=== PATIENT | female | born 1960 | race Caucasian/White ===

== ENCOUNTER → 2017-05-28 | Outpatient (CLI) | payer OTHER ==
--- NOTE | ~2017-05-28 | HC ---
[facility] [place] [address] CONSULTATION Name: TYRELL LOYOLA Room #: REG GRICEL Steward#: [id number] Admission: 05/28/17 Attend Phys: Fuad Hamilton Discharge: Date of : 58 Report #: [id number] THIS REPORT FOR: //name// CC: Fuad Thomas DO DATE OF SERVICE: 05/28/2017 OUTPATIENT CONSULTATION [facility] NOTE DATE OF SERVICE: 05/28/2017 HISTORY OF PRESENT ILLNESS: The patient is a 57-year-old white woman residing [facility] for some 11 years or thereabout. This patient was previously evaluated by me at [facility] with right lower extremity and left lower extremity chronic ulceration. The patient has required a partial amputation of the right hip and knee in the past. She has undergone right AKA at [facility] 2 years ago. Now, she is referred with history of chronic nonhealing ulceration of left lower extremity that is painful in nature. The patient tells me she has been thinking about this problem for quite some time and now she has elected and tells me she wants to have an amputation. Obviously, if this is her decision, I will need to discuss these problems with Dr. Alan Thomas and/or Dr. John to make a decision for such a drastic intervention, but the patient is not able to tolerate the ongoing pain. A culture of these leg ulcerations as well as DNA probes of the ulceration on the left leg has revealed multiple different organisms. The possibility of using broad-spectrum antibiotic coverage is entertained in hope of saving this leg. PAST MEDICAL HISTORY: 1. Schizoaffective disorder. 2. Diabetes mellitus. 3. Morbid obesity. 4. Hypertension. 5. COPD 6. Dyslipidemia. 7. Stasis ulceration, left lower extremity. 8. Migraines. 9. Anemia of chronic disease. 10. Status post laparoscopic cholecystectomy. SOCIAL HISTORY: Resides [facility]. No systemic antibiotics of lately. [facility] [address] [place] [address] CONSULTATION Name: TYRELL LOYOLA Room #: REG GRICEL Steward#: [id number] Admission: 05/28/17 Attend Phys: Fuad Hamilton Discharge: Date of : 58 Report #: [id number] DRUG ALLERGIES: CODEINE, PHENOBARBITAL, CEPHALOSPORIN. MEDICATIONS: The patient is on treatment with Lactobacillus acidophilus, Chantix, clonazepam, cranberry tablets, fenofibrate 150 mg at bedtime, ferrous sulfate 325 b.i.d., furosemide 20 mg daily, levothyroxine 125 mcg daily, lisinopril 10 mg daily, loratadine 10 mg daily, Lyrica 150 mg 2 capsules twice daily, Tylenol Extra Strength one tablet twice daily if needed, metformin 500 mg b.i.d., montelukast 10 mg daily, Prilosec 20 mg daily, oxybutynin 5 mg daily, propranolol 10 mg twice daily for tremors, quetiapine 300 mg daily, senna p.r.n., sertraline 100 mg 2 tablets every day, trazodone 100 mg at bedtime as well as local wound care. REVIEW OF SYSTEMS: The main complaint of this patient is chronic ongoing pain in the left leg ulcer, not well controlled of lately. PHYSICAL EXAMINATION: GENERAL: Morbidly obese white woman. VITAL SIGNS: Blood pressure 101/56, pulse 65, temperature 98.8, O2 saturation 99%. HEENMT: Within range. NECK: Short obese, difficult to examine. BREASTS: Deferred. LUNGS: Decreased breath sounds. HEART: S1, S2. No gallop or murmur. ABDOMEN: Obese, surgical scar of laparoscopic cholecystectomy. EXTREMITIES: Right AKA stump, heel left leg chronic ulceration with some erythema, question cellulitis versus contact dermatitis, chronic ulceration, left leg, no purulence, no odor from the wounds. LABORATORY DATA: On 04/25/2017, the patient had arterial ultrasound left foot and there is no significant abnormalities. The conclusion is mild to moderate atherosclerotic disease. DNA probes obtained of the left leg ulcer on 05/01/2017 revealed Acinetobacter baumannii, Pseudomonas aeruginosa. The organisms multiple resistant in nature. On 04/20/2017, chemistry revealed sodium 138, potassium 4.2, glucose 138, BUN 29, creatinine 0.9. WBC 5.7, hemoglobin 9.4, platelets 180,000. Urine culture 03/2017 revealed greater than 100,000 colonies of E. coli and multiple drug resistant organisms sensitive to meropenem. ASSESSMENT: 1. 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 2. Diabetes mellitus. 3. Morbid obesity. 4. Schizoaffective disorder. [facility] [address] [place] [address] CONSULTATION Name: TYRELL LOYOLA Room #: RADHA Steward#: [id number] Admission: 05/28/17 Attend Phys: Fuad Hamilton Discharge: Date of : 58 Report #: [id number] SUGGESTIONS: At present, I believe the patient's leg ulceration is not obviously infected looking. We could try broad spectrum antibiotics, but I doubt very much that after several years of patient suffering with this condition, her ulceration may heel. I will need to discuss the patient's situation with Dr. Alan Thomas regarding the patient's request to proceed with amputation. If that is the patient's final decision, we may consult Dr. John Frank, orthopedic surgeon, to proceed with amputation. Dr. Thomas, thank you for requesting my suggestions in the care of your patient. <ELECTRONICALLY SIGNED> By: Fuad Mclean MD 05/29/17 0906 [id number] Fuad Mclean MD /nt
== END ==
LOC: SEN 09:21
DX: E11.621 Type 2 diabetes mellitus with foot ulcer (principal); L97.529 Non-pressure chronic ulcer of other part of left foot with unspecified severity; E66.01 Morbid (severe) obesity due to excess calories; F25.9 Schizoaffective disorder, unspecified; I10 Essential (primary) hypertension; J44.9 Chronic obstructive pulmonary disease, unspecified

== ENCOUNTER 2017-07-16 15:33 | Inpatient (IN) | payer OTHER ==
[~2017-07-16] VITALS: Ht 170.2 cm; Wt 147.7 kg
[2017-07-16 15:33] VITALS: BP 119/49
[2017-07-16 16:07] LABS: HEMOGLOBIN 6.5 gm/dL (12.0-15.0); WBC 7.3 thou/uL (4.0-11.0)
[2017-07-16 16:08] LABS: HEMATOCRIT 21.3 % (37.0-47.0); MCH 26.3 pg (26.0-34.0); MCHC 30.5 g/dL (28.0-37.0); MCV 86.1 fL (80.0-100.0); RBC 2.48 mil/uL (4.20-5.00); RDW 25.4 % (10.5-14.5)
[2017-07-16] MEDS ORDERED: CALCIUM OYS SH1 EACH PO (16:23)
[2017-07-16] MEDS ORDERED: AMLODIPINE BESY10 MG PO (16:23)
[2017-07-16] MEDS ORDERED: FENOFIBRATE160 MG PO (16:24)
[2017-07-16] MEDS ORDERED: ADVAIR HFA 230M12 GM INH (16:24)
[2017-07-16] MEDS ORDERED: IRON325 PO (16:24)
[2017-07-16] MEDS ORDERED: LASIX 20 MG TAB20 MG PO (16:25)
[2017-07-16] MEDS ORDERED: ACIDOPHILUS1 EAC3 PO (16:25)
[2017-07-16] MEDS ORDERED: SYNTHROID112 MCG PO (16:26)
[2017-07-16] MEDS ORDERED: CLARITIN10 MG PO (16:26)
[2017-07-16] MEDS ORDERED: MELATONIN5 M1 PO (16:26)
[2017-07-16] MEDS ORDERED: SINGULAIR5 MG PO (16:26)
[2017-07-16] MEDS ORDERED: OXYBUTYNIN 5 MG5 M2 PO (16:27)
[2017-07-16] MEDS ORDERED: PRILOSEC 20 MG20 MG PO (16:27)
[2017-07-16] MEDS ORDERED: LYRICA 75 MG CA75 MG PO (16:32)
[2017-07-16] MEDS ORDERED: SENNA8.6 MG PO (16:33)
[2017-07-16] MEDS ORDERED: PROPRANOLOL 1010 MG PO (16:33)
[2017-07-16] MEDS ORDERED: SERTRALINE HCL50 MG PO (16:34)
[2017-07-16] MEDS ORDERED: TRAZODONE HCL100 MG PO (16:34)
[2017-07-16] MEDS ORDERED: QUETIAPINE FUM100 MG PO (16:34)
[2017-07-16] MEDS ORDERED: CLONAZEPAM 0.50.5 M1 PO (16:35)
[2017-07-16] MEDS ORDERED: TYLENOL EXTRA500 MG PO (16:43)
[2017-07-16] MEDS ORDERED: ENOXAPARIN40 MG/0.1 SUBQ (16:43)
[2017-07-16] MEDS ORDERED: HUMALOG100 UNIT/1 SUBQ (16:43)
[2017-07-16] MEDS ORDERED: PERCOCET 10-321 EAC1 PO (16:43)
[2017-07-16 17:52] LABS: CALCIUM 8.7 mg/dL (8.5-10.1); CREATININE 0.9 mg/dL (0.6-1.0); POTASSIUM 4.5 mmol/L (3.5-5.1)
[2017-07-16 17:58] LABS: APTT 41.6 Seconds (24.5-32.8); INR 1.2; PROTIME 11.8 Seconds (9.3-11.4)
[2017-07-16 18:19] VITALS: BP 105/53; BP 119/53; BP 123/62
[2017-07-16 21:00] VITALS: BP 119/53
[2017-07-16 21:45] VITALS: BP 133/79
[2017-07-17 01:24] VITALS: BP 105/50
[2017-07-17 06:13] VITALS: BP 130/69
[2017-07-17 06:20] LABS: HEMATOCRIT 23.5 % (37.0-47.0); HEMOGLOBIN 7.4 gm/dL (12.0-15.0); MCH 27.2 pg (26.0-34.0); MCHC 31.5 g/dL (28.0-37.0); MCV 86.4 fL (80.0-100.0); RBC 2.72 mil/uL (4.20-5.00); RDW 25.2 % (10.5-14.5); WBC 6.1 thou/uL (4.0-11.0)
[2017-07-17 06:34] LABS: CALCIUM 8.4 mg/dL (8.5-10.1); CREATININE 0.7 mg/dL (0.6-1.0); POTASSIUM 4.2 mmol/L (3.5-5.1)
[2017-07-17 10:02] LABS: % SATURATION 25 % (20-39); IRON 71 ug/dL (50-170); TIBC 281 ug/dL (250-450); UIBC 210 ug/dL
[2017-07-17 16:21] VITALS: BP 123/67
[2017-07-17 20:00] VITALS: BP 149/78
[2017-07-18] VITALS: BP 132/66
[2017-07-18 04:00] VITALS: BP 148/82
[2017-07-18 06:35] LABS: HEMATOCRIT 23.4 % (37.0-47.0); HEMOGLOBIN 7.5 gm/dL (12.0-15.0); MCH 27.8 pg (26.0-34.0); MCHC 31.8 g/dL (28.0-37.0); MCV 87.3 fL (80.0-100.0); RBC 2.68 mil/uL (4.20-5.00); WBC 5.1 thou/uL (4.0-11.0)
[2017-07-18 06:46] LABS: CALCIUM 8.4 mg/dL (8.5-10.1); CREATININE 0.8 mg/dL (0.6-1.0); POTASSIUM 4.4 mmol/L (3.5-5.1)
[2017-07-18 08:08] VITALS: BP 141/69
== END 2017-07-18 17:18 | DRG 378 ==
LOC: ER 15:33 → EROBS 17:37 → 4N 17:37
PROVIDERS: Emergency Medicine; Hospitalist; Internal Medicine; Nurse Practitioner
PROC: 30233N1 Transfusion of Nonautologous Red Blood Cells into Peripheral Vein, Percutaneous Approach (ICD-10-PCS; principal; 2017-07-16)
DX: K92.1 Melena (principal); D62 Acute posthemorrhagic anemia; I13.0 Hypertensive heart and chronic kidney disease with heart failure and stage 1 through stage 4 chronic kidney disease, or unspecified chronic kidney disease; Z68.43 Body mass index [BMI] 50.0-59.9, adult; E11.51 Type 2 diabetes mellitus with diabetic peripheral angiopathy without gangrene; K21.9 Gastro-esophageal reflux disease without esophagitis; F25.9 Schizoaffective disorder, unspecified; F41.9 Anxiety disorder, unspecified; G43.909 Migraine, unspecified, not intractable, without status migrainosus; I50.9 Heart failure, unspecified; M19.90 Unspecified osteoarthritis, unspecified site; N18.9 Chronic kidney disease, unspecified; G89.29 Other chronic pain; F03.90 Unspecified dementia, unspecified severity, without behavioral disturbance, psychotic disturbance, mood disturbance, and anxiety; I89.0 Lymphedema, not elsewhere classified; E11.22 Type 2 diabetes mellitus with diabetic chronic kidney disease; E03.9 Hypothyroidism, unspecified; Z66 Do not resuscitate; J44.9 Chronic obstructive pulmonary disease, unspecified; E78.5 Hyperlipidemia, unspecified; E66.01 Morbid (severe) obesity due to excess calories; D50.9 Iron deficiency anemia, unspecified; Z89.611 Acquired absence of right leg above knee; Z79.4 Long term (current) use of insulin; Z89.612 Acquired absence of left leg above knee; Z88.8 Allergy status to other drugs, medicaments and biological substances; Z87.11 Personal history of peptic ulcer disease; Z79.899 Other long term (current) drug therapy
CPT/HCPCS: 10790

== ENCOUNTER 2017-12-07 00:39 | Emergency (ER) | payer OTHER ==
[~2017-12-07] VITALS: Ht 170.2 cm; Wt 96.6 kg
[~2017-12-07 00:39] MED LIST: ACIDOPHILUS1 EAC3 PO; ADVAIR HFA 230M12 GM INH; AMLODIPINE BESY10 MG PO; CALCIUM OYS SH1 EACH PO; CLARITIN10 MG PO; CLONAZEPAM 0.50.5 M1 PO; ENOXAPARIN40 MG/0.1 SUBQ; FENOFIBRATE160 MG PO; HUMALOG100 UNIT/1 SUBQ; IRON325 PO; LASIX 20 MG TAB20 MG PO; LYRICA 75 MG CA75 MG PO; MELATONIN5 M1 PO; OXYBUTYNIN 5 MG5 M2 PO; PERCOCET 10-321 EAC1 PO; PRILOSEC 20 MG20 MG PO; PROPRANOLOL 1010 MG PO; QUETIAPINE FUM100 MG PO; SENNA8.6 MG PO; SERTRALINE HCL50 MG PO; SINGULAIR5 MG PO; SYNTHROID112 MCG PO; TRAZODONE HCL100 MG PO; TYLENOL EXTRA500 MG PO
[2017-12-07 01:11] LABS: BASOPHILS 0.7 % (0.0-2.0); EOSINOPHILS 3.4 % (0.0-3.0); HEMATOCRIT 34.4 % (37.0-47.0); HEMOGLOBIN 11.4 gm/dL (12.0-15.0); LYMPHOCYTES 24.2 % (24.0-44.0); MCH 28.9 pg (26.0-34.0); MCHC 33.1 g/dL (28.0-37.0); MCV 87.2 fL (80.0-100.0); MONOCYTES 10.2 % (1.0-8.0); PLATELET COUNT 145 thou/uL (150-400); POLYS 61.5 % (36.0-66.0); RBC 3.95 mil/uL (4.20-5.00); RDW 15.1 % (10.5-14.5); WBC 6.6 thou/uL (4.0-11.0)
[2017-12-07 01:21] LABS: CREATININE 1.3 mg/dL (0.6-1.0); POTASSIUM 4.8 mmol/L (3.5-5.1)
[2017-12-07] MEDS ORDERED: BUSPIRONE HCL10 MG PO (01:42)
[2017-12-07] MEDS ORDERED: ALL DAY ALLERGY10 M3 PO (01:43)
[2017-12-07] MEDS ORDERED: MIRALAX17 GM PO (01:46)
[2017-12-07] MEDS ORDERED: PROPRANOLOL 1010 MG PO (01:47)
[2017-12-07] MEDS ORDERED: GAS RELIEF80 MG PO (01:53)
[2017-12-07] MEDS ORDERED: FLOMAX0.4 MG PO (01:53)
[2017-12-07] MEDS ORDERED: ZANAFLEX2 MG PO (01:54)
[2017-12-07] MEDS ORDERED: ERGOCALCIF50000 UNIT PO (01:55)
[2017-12-07] MEDS ORDERED: VITAMIN C500 M2 PO (01:55)
[2017-12-07] MEDS ORDERED: FIBER 6 TABLE1000 MG PO (01:56)
[2017-12-07] MEDS ORDERED: ASPERCREME TOP (01:57)
[2017-12-07] MEDS ORDERED: NOVOLOG FL100 UNIT/M SUBQ (01:58)
[2017-12-07] MEDS ORDERED: GLUCAGON EMERGEN1 MG INJECTION (01:58)
[2017-12-07] MEDS ORDERED: TUMS PO (01:59)
[2017-12-07] MEDS ORDERED: CEPACOL SORE T1 EAC7 PO (02:00)
[2017-12-07] MEDS ORDERED: ONDANSETRON HCL4 M2 PO (02:02)
[2017-12-07] MEDS ORDERED: MILK OF MA2400 MG/10 PO (02:02)
[2017-12-07] MEDS ORDERED: ARTIFICIAL TEA1 EACH OPHTHALMIC (02:03)
[2017-12-07] MEDS ORDERED: DUONEB 2.5-0.5 M3 ML INH (02:04)
[2017-12-07] MEDS ORDERED: BISACODYL SUPP10 MG RECTAL (02:04)
[2017-12-07] MEDS ORDERED: BUTALB-APAP-CA1 EACH PO (02:05)
[2017-12-07] MEDS ORDERED: PERCOCET 10-321 EACH PO (02:08)
[2017-12-07] MEDS ORDERED: DOXYCYCLINE 10100 MG PO (02:09)
== END 2017-12-07 03:48 | disposition home or self-care (01) ==
LOC: ER 00:39
PROVIDERS: Emergency Medicine
DX: L03.012 Cellulitis of left finger (principal); E11.9 Type 2 diabetes mellitus without complications; I12.9 Hypertensive chronic kidney disease with stage 1 through stage 4 chronic kidney disease, or unspecified chronic kidney disease; N18.9 Chronic kidney disease, unspecified; I50.9 Heart failure, unspecified; G43.909 Migraine, unspecified, not intractable, without status migrainosus; F41.9 Anxiety disorder, unspecified; Z88.1 Allergy status to other antibiotic agents; Z88.5 Allergy status to narcotic agent; Z88.2 Allergy status to sulfonamides

== ENCOUNTER 2019-01-09 14:42 | Inpatient (IN) | payer OTHER ==
[~2019-01-09] VITALS: Ht 134.6 cm; Wt 134.3 kg
[~2019-01-09 14:42] MED LIST changes: +ALL DAY ALLERGY10 M3 PO; +ARTIFICIAL TEA1 EACH OPHTHALMIC; +ASPERCREME TOP; +BISACODYL SUPP10 MG RECTAL; +BUSPIRONE HCL10 MG PO; +BUTALB-APAP-CA1 EACH PO; +CEPACOL SORE T1 EAC7 PO; +DOXYCYCLINE 10100 MG PO; +DUONEB 2.5-0.5 M3 ML INH; +ERGOCALCIF50000 UNIT PO; +FIBER 6 TABLE1000 MG PO; +FLOMAX0.4 MG PO; +GAS RELIEF80 MG PO; +GLUCAGON EMERGEN1 MG INJECTION; +MILK OF MA2400 MG/10 PO; +MIRALAX17 GM PO; +NOVOLOG FL100 UNIT/M SUBQ; +ONDANSETRON HCL4 M2 PO; +PERCOCET 10-321 EACH PO; +TUMS PO; +VITAMIN C500 M2 PO; +ZANAFLEX2 MG PO
[2019-01-09 14:44] VITALS: BP 123/54
[2019-01-09 15:23] LABS: HEMATOCRIT 29.1 % (37.0-47.0); HEMOGLOBIN 9.4 gm/dL (12.0-15.0); MCH 28.2 pg (26.0-34.0); MCHC 32.3 g/dL (28.0-37.0); MCV 87.1 fL (80.0-100.0); PLATELET COUNT 202 thou/uL (150-400); RBC 3.34 mil/uL (4.20-5.00); RDW 15.9 % (10.5-14.5); WBC 8.1 thou/uL (4.0-11.0)
[2019-01-09 15:27] LABS: CALCIUM 9.3 mg/dL (8.5-10.1); POTASSIUM 4.5 mmol/L (3.5-5.1)
[2019-01-09 15:58] LABS: ABSOLUTE NEUTROPHILS 6.2 thou/uL (1.4-8.2); PLATELET ESTIMATE NORMAL
[2019-01-09 16:38] VITALS: BP 123/54
[2019-01-09 17:53] VITALS: BP 117/60
[2019-01-09 18:29] VITALS: BP 129/71
--- NOTE | 2019-01-09 18:33 | NUR ---
ADM PT CAME IN FROM ER. PT ORIENTED TO ROOM. ADM DONE. WILL CONTINUE TO MONITOR.
[2019-01-10 03:35] VITALS: BP 110/55
[2019-01-10 05:49] LABS: HEMATOCRIT 27.2 % (37.0-47.0); HEMOGLOBIN 8.8 gm/dL (12.0-15.0); MCH 28.1 pg (26.0-34.0); MCHC 32.4 g/dL (28.0-37.0); MCV 86.6 fL (80.0-100.0); PLATELET COUNT 209 thou/uL (150-400); RBC 3.14 mil/uL (4.20-5.00); RDW 15.8 % (10.5-14.5); WBC 7.8 thou/uL (4.0-11.0)
[2019-01-10 06:04] LABS: ALBUMIN 2.3 g/dL (3.4-5.0); CALCIUM 8.9 mg/dL (8.5-10.1); CREATININE 2.1 mg/dL (0.6-1.0); MAGNESIUM 1.7 mg/dL (1.8-2.4); POTASSIUM 4.8 mmol/L (3.5-5.1); TOTAL BILIRUBIN 0.3 mg/dL (<0.1-1.0); TOTAL PROTEIN 6.8 g/dL (6.4-8.2)
[2019-01-10 06:43] LABS: METAMYELOCYTES 1 %
[2019-01-10 06:44] LABS: ANISOCYTOSIS 1+; PLATELET ESTIMATE NORMAL; POIKILOCYTOSIS 1+; POLYCHROMASIA 1+
[2019-01-10 07:28] VITALS: BP 127/65
--- NOTE | 2019-01-10 08:25 | NUR ---
PROGRESS PT A/O X4 VSS, IV INTACT TO RF GETTING INTERMITTENT ANTIBIOTICS, ABLE TO REPOSITION SELF IN BED, LEFT AKA STUMP AREA RED BLISTERED SOME BLISTERS FILLED AND OTHERS RUPTURED DRAINING SEROUS FLUID. REPORTS PAIN TO STUMP AT A RATE OF 8 TAKING OXYCODONE WITH SOME EFFECT. TOLERATING DIET AND ACCUCHECKS AND SSI CONTINUE.
--- NOTE | 2019-01-10 10:21 | NUR ---
Assess due to RD consult received for pt with AKA wound. Has hx bilateral AKAs, DM. BG controlled. Wt hx highly variable 213-325lb over 2 yrs. Last custodial wt taken was 345 lb so likely best accuracy. Visit during breakfast and had eaten 75% of eggs and 100% of milk. Will eat high protein food sources but states appetite is down just a bit. Obtained food preferences and assisted ordering lunch and dinner. On vitamin C. Pt would like an oral supplement so will order Ensure Max 160cal and 30g protein/serving. Low nutrition risk with nutrition interventions in place.
--- NOTE | 2019-01-10 14:24 | NUR ---
WOUND CONSULT; ROUNDING WITH DR BILL COONEY AND ALFREDO RN CVOR. A LARGE WOUND TO THE LEFT AKA SITE WITH BLISTERS AND YELLOW TISSUE. NON ODEROUS. A SACRAL STAGE 3 PRESSURE ULCER IDENTIFIED. RECOMMENDATIONS; 1-ZGUARD TO THE SACRUM 2-GENTAMYCIN OINTMENT TO THE LEFT AKA WOUND/ABD,TAPE DISCUSSED WITH RN
[2019-01-10 15:57] VITALS: BP 118/96
--- NOTE | 2019-01-10 16:48 | NUR ---
ASSUMED PATIENT CARE AT 0730. PATIENT RECEIVED PAIN MEDICINE, PERCOCET 10 MG AT 0930 AND 1630 P.M. FOR PAIN, LEFT STUMP. PAIN RATED AT 9.
--- NOTE | 2019-01-10 17:04 | NUR ---
PT ADMITTED RELATED TO INFECTION OF AKA STUMP LLE. CM REVIEWED CHART AND SPOKE WITH CARE TEAM. CM MET WITH PT AT BEDSIDE THIS DAY. PT IS A&O X4. CM ROLE INTRODUCED. PT INDICATED SHE LIVES AT [facility]. PT INDICAED SHE HAD LIVED THERE FOR ABOUT 10 YEARS. PT INDICATED SHE USES A SLIDEBOARD AND A WC TO ASSIST WITH MOBILITY AT THE FACILITY. IT IS ANTICIPATED THAT PT WILL BE HERE OVER THE WEEKEND. CM TO FOLLOW INDICATED WITH DC PLANNING.
--- NOTE | 2019-01-10 19:59 | NUR ---
PATIENT COMPLIANT WITH MEDICATIONS, TAKES WHOLE WITH WATER. C/O PAIN, LEFT STUMP AREA. ADMINISTERED OXYCODONE TIMES TWO THIS SHIFT. LAST DOSE AT APPROXIMATELY 1700--SEE EMAR FOR EXACT TIMES. NEW ORDER FOR ANTIOBOTIC, GENTAMYCIN OINTMENT FOR WOUNDS ABOVE LEFT STUMP AREA, APPLIED BY THIS. SENSITIVE TO THE MILD TOUCH OF APPLICATION.
[2019-01-10 20:30] VITALS: BP 111/61
[2019-01-11 03:55] VITALS: BP 115/60
--- NOTE | 2019-01-11 04:40 | NUR ---
PATIENT ALERT AND ORIENTED X4. COOPERATIVE WITH CARE. WHEELER TO D/D WITH YELLOW URINE. PATIENT TAKES MEDS PO W/O COMPLICATION. MEDICATED FOR PAIN X2 AT TIME OF NOTE WITH GOOD RESULTS. BS MONITORED PER ORDER. PATIENTS 02SAT WAS 88% AT BEGINNING OF SHIFT - RT PUT HER ON 2LNC AND IT CAME UP TO 97% RESTING QUIETLY. DRESSING TO LEFT STUMP INTACT. WILL MONITOR.
[2019-01-11 08:04] VITALS: BP 125/57
[2019-01-11 15:38] VITALS: BP 123/64; BP 145/54
--- NOTE | 2019-01-11 18:30 | NUR ---
Assumed pt care this morning, FC patent and draining yellow urine. POC followed, all medication given. Pain managed by pain medication. New wound care regiment (silvadine) implemented and dressing change done. Pressure ulcer cleaned and barrier cream placed. Culture of wound obtained and submitted to lab (leander / aero). Seen by Dr. Jiang no surgival interventions was stated. POC followed , no signs of distress was verbalized or noted. Pt has been stable,
[2019-01-11 19:38] VITALS: BP 142/77
--- NOTE | 2019-01-12 01:33 | NUR ---
PROGRESS PT A/O X4, LUNGS DIMINISHED AND SLIGHTLY WHEEZY. RT TREATMENTS CONTINUE, IV TO LFT FOREARM C/D/I SITE WITHOUT SIGNS OF INFILTRATION.LEFT AKA STUMP COVERED WITH XEROFORM. MOST BLISTERS TO LEFT AKA RUPTURED AND DRAINING SEROSANGUINOUS FLUID. CONTINUE POC.
[2019-01-12 04:28] VITALS: BP 126/66
[2019-01-12 07:31] VITALS: BP 128/74
[2019-01-12 14:48] VITALS: BP 136/75
--- NOTE | 2019-01-12 15:10 | NUR ---
TOWARDS POC PT A/O X4, VSS, AFEBRILE. PAIN MANAGED BY MEDS. WOUND CARE AND DRESSING DONE. WILL CONTINUE TO MONITOR.
[2019-01-12 20:00] VITALS: BP 148/98
--- NOTE | 2019-01-13 03:30 | NUR ---
PROGRESS PT A/O X4 ON BEDREST BUT ABLE TO REPOSITION SELF IN BED WITH SLIGHT ASSISTANCE. VSS, IV TO RIGHT HAND INFUSING IV FLUIDS WITHOUT DIFFICULTY, NO SIGNS AND SYMPTOMS OF INFILTRATION NOTED, LUNGS ARE DIMINISHED WITH SOME LOWER LOBE CRACKLES AND A GOOD STRONG COUGH. LEFT AKA WOUND IN STAGES OF HEALING BLISTERS RUPTURED AND SKIN BEGINNING TO GRANULATE. TAKING OXYCODONE FOR PAIN WITH EFFECT. CONTINUE TO MONITOR.
[2019-01-13 05:55] LABS: HEMATOCRIT 31.8 % (37.0-47.0); HEMOGLOBIN 10.1 gm/dL (12.0-15.0); MCH 27.8 pg (26.0-34.0); MCHC 31.9 g/dL (28.0-37.0); MCV 86.9 fL (80.0-100.0); PLATELET COUNT 235 thou/uL (150-400); RBC 3.65 mil/uL (4.20-5.00); RDW 15.7 % (10.5-14.5); WBC 7.3 thou/uL (4.0-11.0)
[2019-01-13 06:07] LABS: ALBUMIN 2.7 g/dL (3.4-5.0); CALCIUM 9.8 mg/dL (8.5-10.1); CREATININE 1.4 mg/dL (0.6-1.0); POTASSIUM 4.2 mmol/L (3.5-5.1); TOTAL BILIRUBIN 0.3 mg/dL (<0.1-1.0); TOTAL PROTEIN 7.5 g/dL (6.4-8.2)
[2019-01-13 07:52] VITALS: BP 145/75
--- NOTE | 2019-01-13 08:05 | NUR ---
PROGRESS PT PROGRESSING WITH PAIN CONTROL, TAKING OXYCODONE Q4HRS WITH GOOD EFFECT PT SLEEPS AFTER EACH DOSE REPORTS PAIN RELIEF. LEFT AKA SITE WITH RUPTURED FLAT BLISTERS NO LONGER DRAINING, COVERED WITH ANTIBIOTIC CREAM AND SULFA CREAM SCABS OVER WITH RED THIN TISSUE COVERED WITH XEROFORM VASELINE GAUZE. CONTINUE POC.
[2019-01-13 08:40] LABS: ABSOLUTE NEUTROPHILS 5.2 thou/uL (1.4-8.2); METAMYELOCYTES 1 %; PLATELET ESTIMATE NORMAL
--- NOTE | 2019-01-13 11:06 | NUR ---
BUILDING TRADES TEACHER SENT UPDATES TO DELORIS ALTAMIRANO.
[2019-01-13 14:36] VITALS: BP 125/76
--- NOTE | 2019-01-13 20:43 | NUR ---
Assumed pt care this am, progressing well towards goal. Wound care done amd dressing changed. No signs of distress has been noted. POC followed
[2019-01-13 22:20] VITALS: BP 157/80
[2019-01-14 05:38] VITALS: BP 129/69
--- NOTE | 2019-01-14 07:54 | NUR ---
PROGRESS PT A/O X4 ON BEDREST D/T BILATERAL AKA. RATES PAIN IN LEFT STUMP A 9 TO A 10 USING HYDROCODONE AND FENTANYL FOR PAIN WITH GOOD EFFECT. ABLE TO REPOSITION SELF IN BED. VSS UP AD CHRISTA CONTINUE POC.
[2019-01-14 08:36] VITALS: BP 141/77
--- NOTE | 2019-01-14 14:18 | NUR ---
WOUND CARE FOLLOW UP; ROUNDING WITH DR COONEY AND ALFREDO PRIMARY TEACHER. THE LEFT AKA SITE LOOKS MUCH IMPRIVED WITH PULSE LAVAGE. THE SACRAL WOUND WAS NOT ASSESSED TODAY. RECOMMENDATIONS; CONTINUE CURRENT POC DISCUSSED WITH RN
[2019-01-14 14:56] VITALS: BP 147/79
--- NOTE | 2019-01-14 17:26 | NUR ---
ANITCIPATE DC BACK TO [facility] T[facility].
[2019-01-14 20:58] VITALS: BP 138/75
[2019-01-15 07:37] VITALS: BP 152/87
--- NOTE | 2019-01-15 07:48 | NUR ---
progress pt a/o x 4 pain controlled with oxycodone, wound to left knee shaheen scabbed over in good stages of healing no foul odor or drainiage noted, antibiotics converted to oral pt tolerating well plans to go to rehab today.
--- NOTE | 2019-01-15 08:49 | HC ---
[facility] [place] [address] CONSULTATION Name: MARIA ISABEL CUEVASTYRELL TATE Room #: 454-P ADM IN M.R.#: [id number] Admission: 01/09/19 ������������������ Attend Phys: Aneesh Cornell MD Discharge: ������������������ Date of : 58 Report #: [id number] THIS REPORT FOR: //name// CC: Aneesh Thomas DATE OF SERVICE: 01/10/2019 CHIEF COMPLAINT: Left above-knee amputation stump infection. HISTORY OF PRESENT ILLNESS: This is a 58-year-old female patient who is a long-term resident, was admitted with redness, drainage and ulceration of the left above-knee amputation site. She has had no recent hospitalizations or infections and is not certain as to what caused the infection to start. She was treated with oral doxycycline and then Bactrim. It has been worsening despite outpatient care and is admitted for intravenous antibiotic therapy and I have been asked to see her with regard to wound care. PAST MEDICAL HISTORY: Positive for schizoaffective disorder, type 2 diabetes mellitus, hypertension, anxiety, PVD, migraines, lymphedema, heart failure, arthritis, chronic kidney disease, anemia. SOCIAL HISTORY: The patient lives in a nursing care facility. No history of alcohol or tobacco use. FAMILY HISTORY: Noncontributory. ALLERGIES: INCLUDE CEPHALOSPORINS, CODEINE, MOLD, PHENOBARBITAL. MEDICATIONS: Include amlodipine, oyster shell calcium, fenofibrate, iron, Advair, Lasix, acidophilus, Synthroid, Singulair, Prilosec, Inderal, senna, Zoloft, Seroquel, trazodone, acetaminophen, buspirone, cetirizine, simethicone, tamsulosin, tizanidine, ascorbic acid, Drisdol, insulin, DuoNeb, Dulcolax, Fioricet, Percocet. REVIEW OF SYSTEMS: CONSTITUTIONAL: The patient denies fever, chills or weight loss. NEUROLOGICAL: The patient denies focal weakness, numbness, tingling. EYES: The patient has no visual changes, redness, or drainage. ENT: The patient denies earache, nasal drainage or sore throat. CARDIOVASCULAR: The patient denies chest pain, palpitations or diaphoresis. PULMONARY: The patient denies cough or shortness of breath. GASTROINTESTINAL: The patient denies nausea, vomiting, diarrhea or abdominal pain. ORTHOPEDIC: The patient does note pain, swelling and drainage from her left above-knee amputation site. [facility] [address] [place] [address] CONSULTATION Name: MARIA ISABEL FAITHTYRELL TATE Room #: 454-P [facility] IN ..#: [id number] Admission: 01/09/19 ������������������ Attend Phys: Aneesh Cornell MD Discharge: ������������������ Date of : 58 Report #: [id number] Other systems in a 14-point review of systems are negative. PHYSICAL EXAMINATION: VITAL SIGNS: At this time include temperature 36.9, pulse 73, respiratory rate of 18, blood pressure 118/96, temperature 97. GENERAL: This is a chronically ill-appearing female patient who appears to be in minimal distress. HEENT: Head normocephalic. Nose and throat are clear. NECK: Supple. LUNGS: Clear. ABDOMEN: Obese, soft, nontender. EXTREMITIES: Demonstrate bilateral above-knee amputations. The right is well healed. The left side appears to have some superficial ulceration, redness, drainage and slight odor noted. NEUROLOGIC: The patient is alert and oriented and appropriate. LABORATORY DATA: Include sodium 135, potassium 4.8, chloride 102, CO2 of 28, BUN 48, creatinine 2.1, glucose 78, calcium is 8.9, AST is 42, ALT is 34, albumin is 2.3. White blood cell count of 7.8 with a hemoglobin of 8.8, hematocrit 27.2. CLINICAL IMPRESSION: 1. Cellulitis of the left above-knee amputation site. 2. Ulceration, left above-knee amputation site likely due to the underlying cellulitis. 3. Diabetes mellitus. 4. Bilateral above-knee amputations. 5. Morbid obesity. RECOMMENDATIONS: At this point in time, the patient will be started on topical gentamicin ointment and Xeroform gauze to be applied daily. We will obtain a culture and sensitivity. She will need low air loss mattress, every 2 hour turning positioning. She has a small sacral ulcer for which we will recommend zinc oxide, will consider debridement with Misonix and ask General Surgery to see her for that. She will need aggressive nutritional support and continuation of current medications. I appreciate being asked to see her consultation. ��������������������������������������������� <ELECTRONICALLY SIGNED> ���������������������������������������� By: Jerrod Guzmán MD ��������������������������������������������� 01/15/19 0849 1650 2219 Jerrod Guzmán MD /nt
--- NOTE | 2019-01-15 08:57 | HC ---
[facility] [place] [address] CONSULTATION Name: MARIA ISABEL CUEVASTYRELL TATE Room #: 454-P ADM IN M.R.#: [id number] Admission: 01/09/19 ������������������ Attend Phys: Aneesh Cornell MD Discharge: ������������������ Date of : 58 Report #: [id number] THIS REPORT FOR: //name// CC: Aneesh Thomas DATE OF SERVICE: 01/14/2019 INFECTIOUS DISEASE CONSULTATION REASON FOR CONSULTATION: Oral antibiotic for discharge. HISTORY OF PRESENT ILLNESS: A 58-year-old morbidly obese woman admitted through the Emergency Room with increasing pain in left AKA stump, redness of the stump, elevation of ESR and CRP, treated with vancomycin, feeling better now. DRUG ALLERGIES: THE PATIENT RELATES SHE IS ALLERGIC OR INTOLERANT TO CEPHALOSPORINS, CODEINE, PHENOBARBITAL. SHE ALSO HAS SEASONAL ALLERGIES TO MOLD. CURRENT MEDICATIONS: The patient is at least on 34 different medications at the [facility]. Here at the hospital, she is on intravenous vancomycin, topical Silvadene, oxycodone, hydrochloride, acetaminophen p.r.n., ascorbic acid, furosemide, quetiapine fumarate, sertraline, amlodipine besylate, loratadine, levothyroxine, pantoprazole, p.r.n. oxycodone, buspirone, insulin lispro, acidophilus and bulgaricus packages, trazodone, propranolol, ferrous sulfate, tamsulosin, p.r.n. glucose, glucagon, tizanidine p.r.n., Atrovent and albuterol inhalation treatments p.r.n. SOCIAL HISTORY: Resides at local [facility], [facility]. PAST MEDICAL HISTORY: Extensive and includes: 1. Schizoaffective disorder. 2. Diabetes mellitus, type 2. 3. Hypertension. 4. Peripheral vascular disease. 5. Migraines. 6. Congestive heart failure. 7. Arthritis. 8. Chronic kidney disease. 9. Anemia. 10. Status post bilateral AKA. REVIEW OF SYSTEMS: See H and P and as above. PHYSICAL EXAMINATION: [facility] [address] [place] [address] CONSULTATION Name: TYRELL MEJIA Room #: 454-P [facility] IN M.R.#: [id number] Admission: 01/09/19 ������������������ Attend Phys: Aneesh Cornell MD Discharge: ������������������ Date of : 58 Report #: [id number] GENERAL: Morbidly obese woman, not toxic looking, in no distress presenting with the following vital signs. VITAL SIGNS: The patient has been afebrile since admission and her vital signs today is as follows: Temperature 97.8, pulse 88, respirations 18, BP 141/77. Height 4 feet 5 inches, weight is 296 pounds. HEENMT: Upper plate. Pupils reactive. Mouth, no thrush. NECK: Supple. Difficult to examine. BREASTS: Deferred. LUNGS: Clear. HEART: S1, S2. No gallop or murmur. ABDOMEN: Obese, difficult to examine. No masses or megaly. EXTREMITIES: There is bilateral AKA. The left stump has some superficial necrotic skin and erythematous base. All in all, I suspect this may be related to all the good ointments and creams we are applying to it, I recommend leaving to the air. The minute I walked out of the room, the patient asked for the nurses to reapply dressing. Obviously, she heard nothing what I said. NEUROLOGIC: Grossly within normal limits. LABORATORY DATA: Sodium 142, potassium 4.2, BUN 36, creatinine 1.4 and on admission, creatinine was 2. Albumin 2.7 g/dL. CRP on admission 11 and 13.8, down to 36 mg/dL on 01/13/2019. WBC 7300, hemoglobin 10.1, platelets 235,000. White blood cell count unimpressive. ESR 105 on admission, down to 86 mm per hour on 01/13/2019. MICROBIOLOGY DATA: Are all pending at the time of this dictation. At this time, Gram stain revealed no organism. ASSESSMENT: 1. Increased pain in left above-knee amputation stump and elevation of erythrocyte sedimentation rate, question cellulitis versus contact dermatitis. 2. Bilateral above-knee amputation. 3. Schizoaffective disorder. 4. Chronic kidney disease with improving azotemia. 5. Hypoalbuminemia. 6. Drug allergies as above. SUGGESTIONS: Recommend discontinue vancomycin. Minocin 100 mg p.o. b.i.d. for 7 days. Recommend leaving stump to the air, avoid applications of so many chemicals and particularly, Silvadene since what were witnessed at present time may be side effect from applications of medications to the stump. Dr. Diana Major, thank you for requesting my suggestions. ��������������������������������������������� <ELECTRONICALLY SIGNED> ���������������������������������������� By: Fuad Mclean MD ��������������������������������������������� 01/15/19 0857 1139 35 Fuad Mclean MD /nt
[2019-01-15 09:53] VITALS: BP 152/87
[2019-01-15] MEDS ORDERED: MINOCIN50 MG PO (10:46)
--- NOTE | 2019-01-15 11:57 | NUR ---
dp sent dc paperwork to [facility], patient will go back today. Tori at facility is setting up transportation and will let Rekha/OWEN here at [facility] know details
--- NOTE | 2019-01-15 14:15 | NUR ---
PT IS TO BE DISCHARGED BACK TO [facility] THIS DAY. PT IS TO BE TRANSPORTED VIA [facility] THROUGH [facility] BETWEEN [id number]. CHART COPY MADE. ORDERS HAVE BEEN FAXED. REPORT TO BE CALLED TO . PT AND NOTHER ARE AWARE AND AGREEABLE. NO OTHER CM INTERVENTION INDICATED. CASE CLOSED.
--- NOTE | 2019-01-15 16:17 | NUR ---
PT STABLE THROUGHOUT SHIFT. PT DISCHARGED BACK TO [facility]. PT C/O PAIN, TREATED WITH MEDICATION. REPORT CALLED. PT LEFT UNIT VIA [facility].
== END 2019-01-15 16:20 | DRG 564 ==
LOC: ER 14:42 → EROBS 15:45 → 4W 15:45
PROVIDERS: Emergency Medicine; ADMIT Internal Medicine
DX: T87.42 Infection of amputation stump, left upper extremity (principal); L89.153 Pressure ulcer of sacral region, stage 3; E43 Unspecified severe protein-calorie malnutrition; I13.0 Hypertensive heart and chronic kidney disease with heart failure and stage 1 through stage 4 chronic kidney disease, or unspecified chronic kidney disease; Z68.45 Body mass index [BMI] 70 or greater, adult; E11.22 Type 2 diabetes mellitus with diabetic chronic kidney disease; N18.9 Chronic kidney disease, unspecified; E11.51 Type 2 diabetes mellitus with diabetic peripheral angiopathy without gangrene; M19.90 Unspecified osteoarthritis, unspecified site; F25.9 Schizoaffective disorder, unspecified; F41.9 Anxiety disorder, unspecified; Y83.8 Other surgical procedures as the cause of abnormal reaction of the patient, or of later complication, without mention of misadventure at the time of the procedure; Y82.8 Other medical devices associated with adverse incidents; Z79.899 Other long term (current) drug therapy; Z88.6 Allergy status to analgesic agent; Z88.8 Allergy status to other drugs, medicaments and biological substances; Z89.611 Acquired absence of right leg above knee; E66.01 Morbid (severe) obesity due to excess calories; Z74.01 Bed confinement status
CPT/HCPCS: 10040

== ENCOUNTER 2020-08-23 02:10 | Inpatient (IN) | payer OTHER ==
[2020-08-23] VITALS (7 sets, daily range): BP systolic 97–138; BP diastolic 54–77
[~2020-08-23] VITALS: Ht 152.4 cm; Wt 150.6 kg
[~2020-08-23 02:10] MED LIST changes: +MINOCIN50 MG PO; -PRILOSEC 20 MG20 MG PO; +Prilosec PO; +SYNTHROID112 MC1 PO; -SYNTHROID112 MCG PO
[2020-08-23 02:28] LABS: BE(vivo) 2.6 mmol/L (-2 to +3); HCO3 29.3 mmol/L (22.0-26.0); PCO2 56.3 mmHg (35.0-45.0); PO2 75.9 mmHg (80.0-100.0); pH 7.334 (7.360-7.450); sO2 94.1 % (92.0-98.0)
[2020-08-23 02:44] LABS: ABSOLUTE NEUTROPHILS 10.3 thou/uL (1.4-8.2); EOSINOPHILS 0.7 % (0.0-3.0); HEMATOCRIT 31.3 % (37.0-47.0); HEMOGLOBIN 9.3 gm/dL (12.0-15.0); LYMPHOCYTES 9.7 % (24.0-44.0); MCH 22.3 pg (26.0-34.0); MCHC 29.7 g/dL (28.0-37.0); MONOCYTES 7.4 % (1.0-8.0); PLATELET COUNT 267 thou/uL (150-400); POLYS 81.2 % (36.0-66.0); RBC 4.17 mil/uL (4.20-5.00); RDW 18.5 % (10.5-14.5); WBC 12.6 thou/uL (4.0-11.0)
[2020-08-23 02:49] LABS: ANION GAP 7 mmol/L (7-16); BUN 54 mg/dL (7-18); CALCIUM 8.9 mg/dL (8.5-10.1); CHLORIDE 100 mmol/L (98-107); CO2 29 mmol/L (21-32); CREATININE 1.9 mg/dL (0.6-1.0); GLUCOSE 215 mg/dL (74-106); POTASSIUM 4.8 mmol/L (3.5-5.1); SODIUM 136 mmol/L (136-145)
[2020-08-23 03:04] LABS: ALBUMIN 1.7 g/dL (3.4-5.0); SGOT 33 U/L (15-37); SGPT 21 U/L (30-65); TOTAL BILIRUBIN 0.7 mg/dL (0.2-1.0); TOTAL PROTEIN 7.3 g/dL (6.4-8.2); TROPONIN-I <0.06 ng/mL (<0.06)
[2020-08-23 03:09] LABS: URINE BILIRUBIN NEGATIVE (Negative); URINE BLOOD NEGATIVE (Negative); URINE CLARITY CLEAR; URINE COLOR YELLOW; URINE GLUCOSE-RANDOM* NEGATIVE (Negative); URINE KETONES NEGATIVE (Negative); URINE NITRITE-REFLEX NEGATIVE (Negative); URINE PROTEIN (DIPSTICK) NEGATIVE (Negative); URINE SPECIFIC GRAVITY 1.015 (1.005-1.035); URINE UROBILINOGEN 0.2 E.U./dl (0.2-1.0)
[2020-08-23 03:11] LABS: URINE LEUKOCYTES-REFLEX 2+ (Negative)
[2020-08-23 03:26] LABS: BACTERIA-REFLEX >30 Many /HPF (None Seen); CASTS None Seen /LPF (None Seen); CRYSTALS None Seen /LPF (None Seen); MUCUS None Seen strn/LPF (None Seen); SQUAMOUS None Seen /LPF (0-3); URINE RBC None Seen /HPF (0-2); URINE WBC-REFLEX 6-15 Few /HPF (0-5)
[2020-08-23 03:31] LABS: INR 1.3; PROTIME 13.8 Seconds (9.3-11.4)
[2020-08-23 03:55] LABS: ANISOCYTOSIS 2+; HYPOCHROMASIA 2+; POLYCHROMASIA 1+
[2020-08-23] MEDS ORDERED: ADVAIR 230-21 INH (04:14)
[2020-08-23] MEDS ORDERED: PROAIR DIGIHAL90 MCG INH (04:15)
[2020-08-23] MEDS ORDERED: ASPERCREME/LIDOCAINE TOP (04:18)
[2020-08-23] MEDS ORDERED: AZELASTINE EA. EYE (04:19)
[2020-08-23] MEDS ORDERED: CLOTRIMAZOLE 1%15 G1 TOP (05:00)
[2020-08-23] MEDS ORDERED: FIBER TABLET PO (05:01)
[2020-08-23] MEDS ORDERED: BUTALB-APAP-CA1 EACH PO (05:02)
[2020-08-23] MEDS ORDERED: FLONASE 0.05%50 MCG NARES (05:05)
[2020-08-23] MEDS ORDERED: GLIPIZIDE ER10 MG PO (05:06)
[2020-08-23] MEDS ORDERED: HYDROXYZINE PO (05:07)
[2020-08-23] MEDS ORDERED: LANTUS SUBQ (05:08)
[2020-08-23] MEDS ORDERED: JANUVIA50 MG PO (05:47)
[2020-08-23] MEDS ORDERED: LYRICA200 MG PO (05:48)
[2020-08-23] MEDS ORDERED: METOPROLOL SUCCINATE PO (05:50)
[2020-08-23] MEDS ORDERED: NIFEDIPINE ER30 M1 PO (05:50)
[2020-08-23] MEDS ORDERED: KLOR-CON M2020 MEQ PO (05:52)
[2020-08-23] MEDS ORDERED: SENNA PO (05:53)
[2020-08-23] MEDS ORDERED: SENNA PLUS TAB1 EACH PO ×2 (05:53→15:20)
[2020-08-23] MEDS ORDERED: CALCIUM PO (05:55)
[2020-08-23] MEDS ORDERED: SPIRONOLACTONE25 MG PO (05:55)
[2020-08-23] MEDS ORDERED: SLOW MAG PO (05:55)
[2020-08-23] MEDS ORDERED: TOPAMAX 25 MG T25 MG PO (05:57)
[2020-08-23] MEDS ORDERED: VOLTAREN GEL 1100 G1 TOP (05:58)
[2020-08-23] MEDS ORDERED: XYZAL5 MG PO (06:00)
--- NOTE | 2020-08-23 07:50 | EKG ---
[address] [place] [address] ELECTROCARDIOGRAM REPORT Name: TYRELL MEJIA Room #: 170-7 ADM IN M.R.#: [id number] Admission: 08/23/20 Attend Phys: Arvind Romero MD Discharge: Date of : 58 Report #: [id number] [facility] ED Test Date: 2020-08-23 Test Time: 02:26:37 Pat Name: TYRELL CUEVAS Department: Room: 170 Gender: F Security System Engineer: Maribel : 1960 Requested By: Marc Javier Order Number: [id number] MD: Sanford Quinteros Measurements Intervals [place] Rate: 104 P: 32 AR: 145 QRS: 9 QRSD: 76 T: 69 QT: 316 QTc: 416 Interpretive Statements Sinus tachycardia Atrial premature complex No previous ECG available for comparison Electronically Signed On 08-23-2020 7:50:35 [employer] by Sanford Quinteros [email or web address] <ELECTRONICALLY SIGNED> By: Sanford Quinteros MD, FACC 08/23/20 0750 0226 022 Sanford Quinteros MD, FACC /EPI
[2020-08-23 11:18] LABS: FOLIC ACID 11.9 ng/mL (8.6-58.9)
[2020-08-23] MEDS ORDERED: LEVO-T100 MCG PO (15:05)
[2020-08-23] MEDS ORDERED: FIBER625 MG PO (15:13)
[2020-08-23] MEDS ORDERED: HYDROXYZINE HCL25 M2 PO (15:15)
[2020-08-23] MEDS ORDERED: METOPROLOL SUCC25 M1 PO (15:17)
[2020-08-23] MEDS ORDERED: OMEPRAZOLE40 MG PO (15:19)
[2020-08-23] MEDS ORDERED: ADVAIR HFA 230M12 GM INH (16:00)
--- NOTE | 2020-08-23 16:44 | NUR ---
RECEIVED CALL FROM OLIVIA IN AT [facility] THAT PT WAS IN ER HERE AT [facility] AND IF I COULD FAX A CLINICAL UPDATE. UPDATE FAXED RECEIVED CONFIRMATION.
--- NOTE | 2020-08-23 18:41 | NUR ---
NO BREATHING TX COMPLETED AT 3P. RT CALLED AT 5P TO INQUIRE ABOUT TX AND STATED THE PT HAS ANOTHER DUE AT 7P AND WOULD BE COMPLETED THEN.
[2020-08-24 03:09] VITALS: BP 111/61
[2020-08-24 08:50] VITALS: BP 141/80
[2020-08-24 09:27] LABS: ALBUMIN 1.8 g/dL (3.4-5.0); CALCIUM 10.1 mg/dL (8.5-10.1); CREATININE 1.5 mg/dL (0.6-1.0); POTASSIUM 5.5 mmol/L (3.5-5.1); TOTAL BILIRUBIN 0.3 mg/dL (0.2-1.0)
--- NOTE | 2020-08-24 11:26 | 2DMMODE ---
[facility] [place] [address] 2 D/M-MODE ECHOCARDIOGRAM Name: TYRELL MEJIA BEBETO Room #: 212-P [facility] IN ..#: [id number] Admission: 08/23/20 Attend Phys: Raf Rdz MD Discharge: Date of : 58 Report #: [id number] THIS REPORT FOR: cc: Alan Thomas Ryan D. DO Lammoglia, Francisco J. MD ~ APPROVED REPORT Study performed: 08/24/2020 08:45:23 EXAM: Comprehensive 2D, Doppler, and color-flow Echocardiogram Patient Location: In-Patient Room #: 212 Status: routine BSA: 2.29 HR: 79 bpm BP: 111/61 mmHg Other Information Study Quality: Adequate Risk Factors: Cardiac Risk Factors: HTN Indications Diabetes Sepsis Hypertension/HDD 2D Dimensions IVSd: 9.02 (7-11mm) LVOT Diam: 22.45 (18-24mm) LVDd: 55.33 mm PWd: 10.34 (7-11mm) LVDs: 30.56 (25-40mm) Left Atrium: 36.49 (27-40mm) Aortic Root: 29.91 mm Volumes Left Atrial Volume (Systole) Single Plane 4CH: 79.52 mL Single Plane 2CH: 56.51 mL Aortic Valve AoV Peak Jeanmarie.: 1.49 m/s [facility] [address] [place] [address] 2 D/M-MODE ECHOCARDIOGRAM Name: TYRELL MEJIA Room #: 212-P [facility] IN ..#: [id number] Admission: 08/23/20 Attend Phys: Raf Rdz MD Discharge: Date of : 58 Report #: [id number] AO Peak Gr.: 8.82 mmHg LVOT Max P.49 mmHg LVOT Max V: 0.79 m/s SARAH BETH Vmax: 2.10 cm2 Mitral Valve MV Peak Gr.: 10.19 mmHg MV Mean Gr.: 2.07 mmHg E/A Ratio: 0.7 MV Decel. Time: 279.87 ms MV E Max Jeanmarie.: 0.72 m/s MV A Jeanmarie.: 1.00 m/s MV Max Jeanmarie.: 1.60 m/s MV Mean Jeanmarie.: 0.57 m/s MV VTI: 372.84 mm MV PHT: 81.16 ms IVRT: 85.35 ms Pulmonary Valve PV Peak Jeanmarie.: 1.39 m/s PV Peak Gr.: 7.72 mmHg Pulmonary Vein P Vein S: 0.50 m/s P Vein A: 0.37 m/s P Vein D: 0.41 m/s P Vein A Dur.: 170.7 msec P Vein S/D Ratio: 1.22 Tricuspid Valve TR Peak Jeanmarie.: 2.65 m/s RAP Estimate: 10.00 mmHg TR Peak Gr.: 28.11 mmHg RVSP: 38.00 mmHg Left Ventricle Left ventricle is at the upper limits of normal. There is normal left ventricular wall thickness. Left ventricular systolic function is borderline. LVEF is low normal sxcmjlanulmpu06%. Right Ventricle The right ventricle is normal size. The right ventricular systolic function is normal. Atria The left atrium size is normal. The right atrium size is normal. Aortic Valve The aortic valve is normal in structure. No significant aortic regurgitation. There is no aortic valvular stenosis. Mitral Valve [facility] [place] [address] 2 D/M-MODE ECHOCARDIOGRAM Name: TYRELL MEJIA Room #: 212-P ADM IN M.R.#: [id number] Admission: 08/23/20 Attend Phys: Raf Rdz MD Discharge: Date of : 58 Report #: [id number] The mitral valve is normal in structure. Mild mitral regurgitation. No evidence of mitral valve stenosis. Tricuspid Valve The tricuspid valve is normal in structure. The RVSP is 35-40 mmHg. Mild tricuspid regurgitation. Pulmonic Valve The pulmonary valve is normal in structure. There is no pulmonic valvular regurgitation. Great Vessels The aortic root is normal in size. IVC is not well visualized. Pericardium There is no pericardial effusion. <Conclusion> Left ventricle is at the upper limits of normal. LVEF is low normal ttenclbxndwvk39%. The aortic valve is normal in structure. No significant aortic regurgitation. The mitral valve is normal in structure. Mild mitral regurgitation. The tricuspid valve is normal in structure. The RVSP is 35-40 mmHg. Mild tricuspid regurgitation. The pulmonary valve is normal in structure. The aortic root is normal in size. There is no pericardial effusion. <ELECTRONICALLY SIGNED> By: Luis Barrett MD 08/24/20 1126 1126 112 Luis Barrett MD /INF
--- NOTE | 2020-08-24 11:28 | NUR ---
Assess due to consult received. Pt with extreme class III obesity, bilateral AKA with wt 325 lb. Admit from facility with CHF. Note DNR status. Pt reports fair intake, does not usually eat breakfast, likely diet insufficient in protein. BG 230. Agrees to glucerna shake and Ensure Max trials. Physician has indicated protein calorie malnutrition: RD will defer. Consider low nutrition risk with appropriate nutrition interventions in place.
[2020-08-24 11:30] VITALS: BP 124/74
[2020-08-24 11:45] VITALS: BP 123/74
--- NOTE | 2020-08-24 15:38 | NUR ---
AAOX4. CALM, COOPERATIVE. TURNS, BEDPAN. CONTINENT. SR PER TELE. DENIES CP, SOA. FALL PRECAUTIONS IN PLACE.
--- NOTE | 2020-08-24 17:20 | NUR ---
Patient admits with hypoxia, copd. She is ltc resident of [facility]. Left message for her mother. Patient is bilateral amputee. She uses transfer board and trapeze. Sp with Tori in admissions at [facility] plan return once stable. DC naval surface fire support planner to send updates to facility. Casemgt following.
[2020-08-24 20:45] VITALS: BP 138/79
[2020-08-25 05:10] LABS: HEMATOCRIT 30.9 % (37.0-47.0); HEMOGLOBIN 9.3 gm/dL (12.0-15.0); MCH 22.5 pg (26.0-34.0); MCHC 30.1 g/dL (28.0-37.0); MCV 74.6 fL (80.0-100.0); RBC 4.14 mil/uL (4.20-5.00); RDW 18.7 % (10.5-14.5); WBC 12.1 thou/uL (4.0-11.0)
[2020-08-25 05:27] LABS: CALCIUM 9.7 mg/dL (8.5-10.1); CREATININE 1.6 mg/dL (0.6-1.0)
[2020-08-25 05:43] LABS: POTASSIUM 5.5 mmol/L (3.5-5.1)
[2020-08-25 06:00] VITALS: BP 125/67
[2020-08-25 07:33] VITALS: BP 143/82
--- NOTE | 2020-08-25 07:38 | NUR ---
PT HAD AN UNEVENTFUL NOC, RESTED WELL THROUGH THE NOC, SHOULD D/C SOON
--- NOTE | 2020-08-25 08:58 | NUR ---
PT AOX4, ASKING IF SHE CAN GO HOME TODAY WILL F/U ON SUCH. REPORTS BACK PAIN CONTINUES AND MOST OF THIS IS "CHRONIC", WILL BRING PRN MEDS BACK SOON FOR SUCH. LUNENES CHANGED WITH TECH AND PT. CLEANED UP AT THIS TIME.
[2020-08-25 12:20] VITALS: BP 137/85
--- NOTE | 2020-08-25 15:07 | NUR ---
PT. PLACED ON BEDPAN AT THIS TIME. MEDICATED EARLIER WITH FENTANYL FOR PAIN IN HER BACK 04/08, RESPONSE IS NOW 5/10 AND IMPROVED.
[2020-08-25 15:33] VITALS: BP 74/51
--- NOTE | 2020-08-25 18:06 | NUR ---
Spoke with patient regarding possible dc in am. She reports she sp with her mother and she is aware. Casemgt to finalize in am if dc.
[2020-08-25 20:00] VITALS: BP 121/858
[2020-08-25 20:50] VITALS: BP 131/85
[2020-08-26 04:45] VITALS: BP 130/77
[2020-08-26 04:52] LABS: HEMOGLOBIN 10.1 gm/dL (12.0-15.0); MCH 22.5 pg (26.0-34.0); MCHC 30.5 g/dL (28.0-37.0); MCV 73.8 fL (80.0-100.0); RBC 4.47 mil/uL (4.20-5.00); RDW 18.5 % (10.5-14.5); WBC 12.3 thou/uL (4.0-11.0)
[2020-08-26 05:18] LABS: CREATININE 1.4 mg/dL (0.6-1.0); POTASSIUM 5.6 mmol/L (3.5-5.1)
[2020-08-26 08:10] VITALS: BP 160/82
[2020-08-26 09:07] VITALS: BP 130/77
[2020-08-26] MEDS ORDERED: MACRODANTIN50 MG PO (09:45)
[2020-08-26] MEDS ORDERED: LEVOFLOXACIN750 MG PO (09:47)
[2020-08-26] MEDS ORDERED: PREDNISONE 10 M10 M1 PO (09:47)
[2020-08-26] MEDS ORDERED: LASIX 40 MG TAB40 M1 PO (09:48)
--- NOTE | 2020-08-26 10:30 | NUR ---
Pt dcing back to intermediate project manager care at [facility] today. DC case planner to arrange for [facility] transport and nursing to call report. Pt and her mother are aware but dc case planner will confirm the transport time with all parties. Chart copy in progress. Pt is at baseline per therapy.
--- NOTE | 2020-08-26 11:33 | NUR ---
FAXED DELORIS CHAPPELL [facility] THE DISCHARGE ORDERS/SUMMARY, PROGRESS NOTES, OT & PT EVALUATIONS AND NEGATIVE COVID TEST TAKEN ON 08/23/20. PATIENT TO BE PICKED UP BY AMBULANCE AT 11:30 AM. BASSEM/RN NOTIFIED AND GIVEN NOTE TO CALL REPORT TO STATION 2 AT FACILITY. CHART COPY COMPLETED. DELORIS CHAPPELL P [phone]; FAX [phone]
--- NOTE | 2020-08-26 13:06 | NUR ---
ASSUMED CARE OF PT AT SHIFT CHANGE. ASSESSMENT CHARTED. MEDS GIVEN PER SEP. PT A&OX4, NO C/O PAIN OR DISTSRESS DURING SHIFT. DISCHARGE ORDERS COMPLETE. TELE AND IV DC'D. TRANSPORTED VIA [facility] TO LTC.
== END 2020-08-26 13:09 | DRG 871 ==
LOC: ER 02:10 → EROBS 04:06 → 2N 04:06
PROVIDERS: Emergency Medicine; ADMIT Hospitalist; ATTEND Hospitalist
DX: A41.9 Sepsis, unspecified organism (principal); E43 Unspecified severe protein-calorie malnutrition; J96.21 Acute and chronic respiratory failure with hypoxia; J96.22 Acute and chronic respiratory failure with hypercapnia; I50.33 Acute on chronic diastolic (congestive) heart failure; N17.9 Acute kidney failure, unspecified; N39.0 Urinary tract infection, site not specified; I13.0 Hypertensive heart and chronic kidney disease with heart failure and stage 1 through stage 4 chronic kidney disease, or unspecified chronic kidney disease; J44.1 Chronic obstructive pulmonary disease with (acute) exacerbation; Z68.44 Body mass index [BMI] 60.0-69.9, adult; F41.9 Anxiety disorder, unspecified; E11.51 Type 2 diabetes mellitus with diabetic peripheral angiopathy without gangrene; G43.909 Migraine, unspecified, not intractable, without status migrainosus; M19.90 Unspecified osteoarthritis, unspecified site; N18.9 Chronic kidney disease, unspecified; E11.22 Type 2 diabetes mellitus with diabetic chronic kidney disease; E03.9 Hypothyroidism, unspecified; E66.01 Morbid (severe) obesity due to excess calories; Z66 Do not resuscitate; I87.2 Venous insufficiency (chronic) (peripheral); F20.9 Schizophrenia, unspecified; Z20.822 Contact with and (suspected) exposure to COVID-19; D63.8 Anemia in other chronic diseases classified elsewhere; Z88.6 Allergy status to analgesic agent; Z88.8 Allergy status to other drugs, medicaments and biological substances; Z89.512 Acquired absence of left leg below knee; Z89.511 Acquired absence of right leg below knee; Z87.891 Personal history of nicotine dependence; Z87.11 Personal history of peptic ulcer disease
CPT/HCPCS: 10081

== ENCOUNTER 2020-10-23 13:17 | Inpatient (IN) | payer OTHER ==
[~2020-10-23] VITALS: Ht 165.1 cm; Wt 104.3 kg
[~2020-10-23 13:17] MED LIST changes: +ADVAIR 230-21 INH; +ASPERCREME/LIDOCAINE TOP; +AZELASTINE EA. EYE; +CALCIUM PO; +CLOTRIMAZOLE 1%15 G1 TOP; +FIBER TABLET PO; +FIBER625 MG PO; +FLONASE 0.05%50 MCG NARES; +GLIPIZIDE ER10 MG PO; +HYDROXYZINE HCL25 M2 PO; +HYDROXYZINE PO; +JANUVIA50 MG PO; +KLOR-CON M2020 MEQ PO; +LANTUS SUBQ; +LASIX 40 MG TAB40 M1 PO; +LEVO-T100 MCG PO; +LEVOFLOXACIN750 MG PO; +LYRICA200 MG PO; +MACRODANTIN50 MG PO; +METOPROLOL SUCC25 M1 PO; +METOPROLOL SUCCINATE PO; +NIFEDIPINE ER30 M1 PO; +OMEPRAZOLE40 MG PO; +PREDNISONE 10 M10 M1 PO; +PROAIR DIGIHAL90 MCG INH; +SENNA PLUS TAB1 EACH PO; +SENNA PO; +SLOW MAG PO; +SPIRONOLACTONE25 MG PO; +TOPAMAX 25 MG T25 MG PO; +VOLTAREN GEL 1100 G1 TOP; +XYZAL5 MG PO
[2020-10-23 13:18] VITALS: BP 82/33
[2020-10-23 13:42] LABS: HEMATOCRIT 25.9 % (37.0-47.0); HEMOGLOBIN 7.7 gm/dL (12.0-15.0); MCH 22.4 pg (26.0-34.0); MCHC 29.8 g/dL (28.0-37.0); MCV 75.1 fL (80.0-100.0); PLATELET COUNT 245 thou/uL (150-400); RBC 3.45 mil/uL (4.20-5.00); RDW 18.7 % (10.5-14.5)
[2020-10-23 13:52] LABS: ANION GAP 6 mmol/L (7-16); BUN 44 mg/dL (7-18); CALCIUM 8.9 mg/dL (8.5-10.1); CHLORIDE 101 mmol/L (98-107); CO2 28 mmol/L (21-32); CREATININE 1.5 mg/dL (0.6-1.0); GLUCOSE 81 mg/dL (74-106); SODIUM 135 mmol/L (136-145)
[2020-10-23 14:00] LABS: POTASSIUM 5.6 mmol/L (3.5-5.1)
[2020-10-23 14:03] LABS: ALBUMIN 1.7 g/dL (3.4-5.0); AMYLASE 21 U/L (25-115); DIRECT BILIRUBIN < 0.1 mg/dL (<0.1-0.2); LIPASE 68 U/L (73-393); MAGNESIUM 1.3 mg/dL (1.8-2.4); PHOSPHORUS 3.3 mg/dL (2.5-4.9); SGOT 46 U/L (15-37); SGPT 15 U/L (30-65); TOTAL BILIRUBIN 0.5 mg/dL (0.2-1.0); TOTAL PROTEIN 7.3 g/dL (6.4-8.2); TROPONIN-I <0.06 ng/mL (<0.06)
[2020-10-23 14:16] LABS: URINE BILIRUBIN NEGATIVE (Negative); URINE BLOOD NEGATIVE (Negative); URINE CLARITY CLEAR; URINE COLOR YELLOW; URINE GLUCOSE-RANDOM* NEGATIVE (Negative); URINE KETONES NEGATIVE (Negative); URINE LEUKOCYTES-REFLEX 2+ (Negative); URINE NITRITE-REFLEX POSITIVE (Negative); URINE PROTEIN (DIPSTICK) NEGATIVE (Negative); URINE SPECIFIC GRAVITY 1.015 (1.005-1.035); URINE UROBILINOGEN 0.2 E.U./dl (0.2-1.0)
[2020-10-23 14:25] LABS: HYALINE CASTS 0-3 Few /LPF (None Seen); SQUAMOUS 0-3 Few /LPF (0-3)
[2020-10-23 14:26] LABS: BACTERIA-REFLEX >30 Many /HPF (None Seen)
[2020-10-23 14:27] LABS: CRYSTALS None Seen /LPF (None Seen); URINE RBC 0-2 Rare /HPF (0-2)
[2020-10-23 14:34] LABS: BE(vivo) 1.1 mmol/L (-2 to +3); HCO3 26.8 mmol/L (22.0-26.0); PCO2 48.9 mmHg (35.0-45.0); PO2 70.7 mmHg (80.0-100.0); pH 7.357 (7.360-7.450); sO2 93.4 % (92.0-98.0)
[2020-10-23 14:37] LABS: LARGE PLATELETS FEW; METAMYELOCYTES 1 %; MYELOCYTES 1 %
[2020-10-23 14:38] LABS: POLYCHROMASIA SLIGHT; TARGET CELLS OCCASIONAL
[2020-10-23] MEDS ORDERED: ADVAIR HFA 230M12 GM INH (17:16)
[2020-10-23] MEDS ORDERED: DIFLUCAN150 M1 PO (18:57)
[2020-10-23] MEDS ORDERED: ERGOCALCIFEROL PO (18:59)
[2020-10-23] MEDS ORDERED: BUTALB-APAP-CA1 EACH PO (19:01)
[2020-10-23] MEDS ORDERED: FLOMAX0.4 MG PO (19:01)
[2020-10-23] MEDS ORDERED: FUROSEMIDE 40 M40 MG PO (19:02)
[2020-10-23] MEDS ORDERED: GENTAMICIN40 MG/1 ML IM (19:04)
[2020-10-23] MEDS ORDERED: JANUVIA25 MG PO (20:28)
[2020-10-23] MEDS ORDERED: MIRALAX17 G1 PO (21:06)
[2020-10-23] MEDS ORDERED: SEROQUEL300 MG PO (21:16)
[2020-10-23] MEDS ORDERED: SPIRONOLACTONE25 MG PO (21:23)
[2020-10-23] MEDS ORDERED: TYLENOL325 MG PO (21:44)
[2020-10-23] MEDS ORDERED: VOLTAREN GEL 1100 G1 TOP (21:48)
[2020-10-23] MEDS ORDERED: NYSTATIN15 G1 TOP (21:50)
[2020-10-24] MEDS ORDERED: MAGNESIUM CHLOR70 MG PO (01:27)
[2020-10-24] MEDS ORDERED: ANTACID168 MG PO (01:28)
[2020-10-24 05:41] LABS: CALCIUM 9.1 mg/dL (8.5-10.1); CREATININE 1.6 mg/dL (0.6-1.0); MAGNESIUM 1.5 mg/dL (1.8-2.4)
[2020-10-24 05:42] LABS: POTASSIUM 4.4 mmol/L (3.5-5.1)
[2020-10-24 06:05] LABS: HEMATOCRIT 24.3 % (37.0-47.0); HEMOGLOBIN 7.2 gm/dL (12.0-15.0); MCH 22.4 pg (26.0-34.0); MCHC 29.5 g/dL (28.0-37.0); MCV 75.9 fL (80.0-100.0); RBC 3.2 mil/uL (4.20-5.00); RDW 18.2 % (10.5-14.5); WBC 11.1 thou/uL (4.0-11.0)
[2020-10-24 06:45] VITALS: BP 130/71
--- NOTE | 2020-10-24 07:06 | NUR ---
Report attempted to 4 west. Reports will call back in 5 minutes.
--- NOTE | 2020-10-24 07:06 | NUR ---
Attempted to call report to floor nurse. Reports she will call back in 5 minutes.
[2020-10-24 07:21] VITALS: BP 130/83
[2020-10-24 09:50] VITALS: BP 135/69
--- NOTE | 2020-10-24 10:00 | NUR ---
PT ARRIVED FROM ER TO [facility] ROOM 464 AT 0730 AM. PT ALERT AND ORIENTED TO PERSON, PLACE AND TIME. PT ON 2L NC ON ARRIVAL TO [facility] WITH WHEELER CATHETER IN PLACE. PT BLOOD GLUCOSE ON MID 200'S. PT IS SR ON MONITOR. PT IS AFEBRILE. CONTINUE TO MONITOR.
--- NOTE | 2020-10-24 11:28 | EKG ---
[address] [address] ELECTROCARDIOGRAM REPORT Name: TYRELL MEJIA Room #: 464-P ADM IN M.R.#: [id number] Admission: 10/23/20 Attend Phys: Diana Major MD Discharge: Date of : 58 Report #: [id number] [facility] ED Test Date: 2020-10-23 Test Time: 13:23:59 Pat Name: TYRELL CUEVAS Department: Room: 464 Gender: F Supervisor Roving: PADMAJA : 1960 Requested By: Thaddeus Sanabria Order Number: [id number] MD: Morales Parrish Measurements Intervals [place] Rate: 85 P: -48 IN: 135 QRS: 8 QRSD: 84 T: 46 QT: 336 QTc: 400 Interpretive Statements Sinus rhythm Compared to ECG 08/23/2020 02:26:37 Ectopic atrial rhythm now present Sinus tachycardia no longer present Atrial premature complex(es) no longer present Electronically Signed On 10-24-2020 11:28:42 CDT by Morales Parrish [email or web address] <ELECTRONICALLY SIGNED> By: Morales Parrish MD, FACC 10/24/20 1128 1323 1323 Morales Parrish MD, FAC /EPI
[2020-10-24 15:31] VITALS: BP 114/63
[2020-10-24 20:44] VITALS: BP 129/67
--- NOTE | 2020-10-25 02:53 | NUR ---
ASSESSMENT DOCUMENTED.PT A/OX4.VSS.ON RA.O2 SAT>95%.ON NOCTURNAL O2 STUDY.CONTINOUS PULSE OXIMETRY CONTINOUSLY.SUSTAINING ADEQUATE O2 SAT.NSR ON MONITOR.RESP REGULAR AND UNLABOURED.PAIN MEDS GIVEN FOR C/O BACK PAIN W/RELIEF.POSSIBLE DISCHARGE TODAY BACK TO SNF.
--- NOTE | 2020-10-25 07:37 | HC ---
[facility] [place] [address] CONSULTATION Name: MARIA ISABEL FAITH,TYRELL TATE Room #: 464-P ADM IN M.R.#: [id number] Admission: 10/23/20 Attend Phys: Diana Major MD Discharge: Date of : 58 Report #: [id number] THIS REPORT FOR: cc: Alan Thomas Ryan D. DO Barry, Joseph W. MD ~ DATE OF SERVICE: 10/24/2020 INFECTIOUS DISEASE CONSULTATION ATTENDING PHYSICIAN: Dr. Major. REASON FOR EVALUATION: Complicated urinary tract infection. HISTORY OF PRESENT ILLNESS: Chart reviewed, patient examined. This is a 60-year-old with fairly extensive medical history given her age. She has underlying COPD with baseline supplemental requirements of 2-3 liters, also has obstructive sleep apnea, uses CPAP, presented to the Emergency Room with progressive weakness. She does live in a facility. She was found to be hypotensive, does have chronic decubitus ulcers as well, who is difficult to obtain a history from. She is quite somnolent at this point. Initial evaluation in the Emergency Room revealed mild renal insufficiency. Lactic acid was 1.1. Urinalysis did show marked pyuria, greater than 30 bacteria. Coronavirus testing was negative. She was empirically started on nitrofurantoin. It is notable previous culture from this facility in July of this year had Escherichia coli that was ESBL producing. ALLERGIES: Listed to CEPHALOSPORINS, PHENOBARBITAL, CODEINE. CURRENT MEDICATIONS: Include Levaquin, levothyroxine, ipratropium, albuterol inhaler, oxycodone, methylprednisolone, buspirone, topiramate, pregabalin, tamsulosin, trazodone, quetiapine, sertraline, fenofibrate, insulin sliding scale, nitrofurantoin. PAST MEDICAL HISTORY: Diabetes mellitus type 2, hypertension, anxiety, schizoaffective disorder, peripheral vascular disease, migraines, cardiomyopathy with history of congestive heart failure, arthritis, chronic renal insufficiency, anemia. SOCIAL HISTORY: Former smoker. No ethanol. No illicit drug use. FAMILY HISTORY: Noncontributory. REVIEW OF SYSTEMS: Otherwise, unremarkable. Of course, it is difficult to obtain due to her somnolence. [facility] [address] [place] [address] CONSULTATION Name: MARIA ISABEL FAITHTYRELL TATE Room #: 464-P [facility] IN .R.#: [id number] Admission: 10/23/20 Attend Phys: Diana Major MD Discharge: Date of : 58 Report #: [id number] PHYSICAL EXAMINATION: GENERAL: She appears chronically ill, undernourished. She is obese, encephalopathic. VITAL SIGNS: Temperature 97.3, pulse 75, respirations 13, blood pressure 130/83. SKIN: Warm, dry, no rashes. HEENT: Normocephalic. NECK: Appears to be supple. LUNGS: Few scattered coarse breath sounds, has a soft systolic murmur. ABDOMEN: Morbidly obese, large pannus, soft. I do not appreciate any tenderness. EXTREMITIES: Bilateral AKA. GENITOURINARY AND RECTAL: Deferred. LABORATORY DATA: CBC: White count 11.1, H and H 7.2 and 24.3, platelets of 226. Electrolytes: Sodium 139, potassium 4.4, chloride 103, bicarbonate is 27, anion gap of 9, BUN and creatinine 39 and 1.6, glucose of 232. Coronavirus testing was negative. Chest x-ray, stable cardiomegaly without acute process. ABGs yesterday, poorly on room air showed pH 7.357, pCO2 of 48.9, pO2 of 70.7. Urinalysis as described above, 16-25 white cells, greater than 30 bacteria. TSH 0.391. Liver functions are otherwise unremarkable. Albumin of 1.7, total protein 7.3, estimated GFR of 35. ASSESSMENT AND PLAN: Complicated urinary tract infection with suspected resistant organism based on previous cultures, noted this recurrent issue has been complicated by encephalopathy plus longstanding chronic issues. We will broaden antimicrobial therapy at this point, start a carbapenem. I will go ahead and check blood cultures as well as to exclude a systemic illness. May need further abdominal imaging. We will see how she responds. Continue to monitor closely. She is at risk for complications including aspiration. <ELECTRONICALLY SIGNED> By: Fredy Mace MD 10/25/20 0737 0955 1024 Fredy Mace MD /nt
[2020-10-25 08:00] VITALS: BP 127/69
[2020-10-25] MEDS ORDERED: ZOLOFT100 MG PO (09:21)
[2020-10-25] MEDS ORDERED: PREDNISONE 10 M10 M1 PO (09:23)
--- NOTE | 2020-10-25 11:57 | NUR ---
cm completed the initial assessment to discuss d/c planning. pt lives at [facility], has for about 14 yrs. pt plans to rtrn there. pt stated she is w/c bound and is able to sit up and assist self into w/c. pt use o2 at night per bedside rn. pt had no o2 applied during assessment; however, cm informed taras at [facility] to have o2 avail when setting up transportation in case needed. taras arranged transportation for 1500. cm notifed pt's mother and pt of plan. both agreeable. rn provided number to call report, . rn, joey. d/c event plannernguyễn sent orders to facility.
--- NOTE | 2020-10-25 12:05 | NUR ---
FAXED DC ORDERS/SUMMARY TO [facility] RECEIVED CONFIRMATION AND SPOKE WITH KANDI IN ADM SHE ARRANGED TRANSPORT FOR 1500 TODAY.
[2020-10-25] MEDS ORDERED: AUGMENTIN 500-1 EACH PO (12:47)
--- NOTE | 2020-10-25 13:38 | NUR ---
Assumed pt care at 7am. Pt in bed sleeping on and off but arousable.Assessment completed.vss.Pt tolerated diet amd meds. Dr Major and Rodri here,dc order noted.manager motor arranged for pt dc to [facility] today at 1500.Report called to Lakshmi malone.Fall bundle in place. Greg will be dc prior to sent pt per van to [facility] at 1500.
--- NOTE | 2020-10-26 08:07 | NUR ---
Note Given: Y Facility List Provided:Y Facility Aren: None chosen at this time Roxanna Goode NP discussed BPCI with this pt 10/25/20
--- NOTE | 2020-10-26 08:56 | HC ---
[facility] [place] [address] CONSULTATION Name: JESUSAMANDEEP CUEVASTYRELL TATE Room #: 464-P [facility] IN M.R.#: [id number] Admission: 10/23/20 Attend Phys: Diana Major MD Discharge: 10/25/20 Date of : 58 Report #: [id number] THIS REPORT FOR: cc: Alan Thomas Ryan D. DO Jetmore, Allen B. MD ~ DATE OF SERVICE: 10/24/2020 WOUND CARE CONSULTATION NOTE REASON FOR CONSULTATION: Gluteal pressure sores. HISTORY OF PRESENT ILLNESS: The patient is a 60-year-old woman suffering from morbid obesity and diabetes mellitus type 2, admitted for hypoxemic respiratory failure with COPD and urinary tract infection. She was noted to have gluteal pressure sores and Wound Care is consulted by Dr. Major. PAST MEDICAL HISTORY: Morbid obesity, immobility, diabetes mellitus type 2, current urinary tract infection, peripheral vascular disease with bilateral above-knee amputations, severe protein-calorie malnutrition with albumin 1.7. ALLERGIES: CEPHALOSPORINS, CODEINE, PHENOBARBITAL. PHYSICAL EXAMINATION: GENERAL: Shows a morbidly obese woman, who is alert, pleasant, and conversant. She has nasal oxygen cannula. No respiratory distress. HEENT: Mucous membranes are moist. NECK: Supple. ABDOMEN: Super morbidly obese. She has bilateral above-knee amputations, which are healed. EXTREMITIES: Examination of the patient's back and buttocks shows superficial stage 3 pressure ulcer of the right ischial buttock medially measuring less than 1 cm and superficial. There is also superficial stage 3 pressure ulcer of the left buttock located more laterally measured 1.5 x 0.5 cm, neither has cellulitis. She will be on topical barrier cream and offloading. IMPRESSION: 1. Super morbid obesity with alveolar hypoventilation respiratory failure. 2. Chronic obstructive pulmonary disease. 3. Diabetes mellitus type 2 with gluteal ulcers. 4. Peripheral vascular disease with bilateral amputations. 5. Immobility. 6. Severe protein-calorie malnutrition, albumin 1.7. 7. Small stage 3 pressure ulcers of right and left buttock. [facility] [address] [place] [address] CONSULTATION Name: TYRELL MEJIA Room #: 464-P DIS IN M.R.#: [id number] Admission: 10/23/20 Attend Phys: Diana Major MD Discharge: 10/25/20 Date of : 58 Report #: [id number] PLAN: Offload with thick barrier cream to both wounds, foam border as possible, repositioning. Maximize nutrition. Wound care team will follow. <ELECTRONICALLY SIGNED> By: Trip Mujica MD 10/26/20 0856 1249 1317 Trip Mujica MD /nt
== END 2020-10-25 16:30 | DRG 871 ==
LOC: ER 13:17 → EROBS 15:43 → 4W 15:43
PROVIDERS: Emergency Medicine; ADMIT Internal Medicine; ATTEND Internal Medicine
DX: A41.9 Sepsis, unspecified organism (principal); L89.323 Pressure ulcer of left buttock, stage 3; L89.313 Pressure ulcer of right buttock, stage 3; E43 Unspecified severe protein-calorie malnutrition; J96.22 Acute and chronic respiratory failure with hypercapnia; J96.21 Acute and chronic respiratory failure with hypoxia; I13.0 Hypertensive heart and chronic kidney disease with heart failure and stage 1 through stage 4 chronic kidney disease, or unspecified chronic kidney disease; N30.00 Acute cystitis without hematuria; J44.1 Chronic obstructive pulmonary disease with (acute) exacerbation; I42.9 Cardiomyopathy, unspecified; E66.2 Morbid (severe) obesity with alveolar hypoventilation; F41.9 Anxiety disorder, unspecified; F25.9 Schizoaffective disorder, unspecified; E11.51 Type 2 diabetes mellitus with diabetic peripheral angiopathy without gangrene; E11.22 Type 2 diabetes mellitus with diabetic chronic kidney disease; N18.9 Chronic kidney disease, unspecified; I50.9 Heart failure, unspecified; G43.909 Migraine, unspecified, not intractable, without status migrainosus; E03.9 Hypothyroidism, unspecified; M19.90 Unspecified osteoarthritis, unspecified site; E11.622 Type 2 diabetes mellitus with other skin ulcer; D64.9 Anemia, unspecified; E78.5 Hyperlipidemia, unspecified; Z20.822 Contact with and (suspected) exposure to COVID-19; Z66 Do not resuscitate; Z99.81 Dependence on supplemental oxygen; Z79.4 Long term (current) use of insulin; Z79.899 Other long term (current) drug therapy; Z88.1 Allergy status to other antibiotic agents; Z88.5 Allergy status to narcotic agent; Z88.8 Allergy status to other drugs, medicaments and biological substances; Z87.891 Personal history of nicotine dependence; Z68.38 Body mass index [BMI] 38.0-38.9, adult; Z89.612 Acquired absence of left leg above knee; Z89.611 Acquired absence of right leg above knee
CPT/HCPCS: 10045

== ENCOUNTER 2021-05-30 12:52 | Inpatient (IN) | payer OTHER ==
[~2021-05-30] VITALS: Ht 223.5 cm; Wt 141.6 kg
[~2021-05-30 12:52] MED LIST changes: +ANTACID168 MG PO; +AUGMENTIN 500-1 EACH PO; +DIFLUCAN150 M1 PO; +ERGOCALCIFEROL PO; +FUROSEMIDE 40 M40 MG PO; +GENTAMICIN40 MG/1 ML IM; +JANUVIA25 MG PO; +MAGNESIUM CHLOR70 MG PO; +MIRALAX17 G1 PO; +NYSTATIN15 G1 TOP; +SEROQUEL300 MG PO; +TYLENOL325 MG PO; +ZOLOFT100 MG PO
[2021-05-30 12:53] VITALS: BP 117/68
[2021-05-30 13:18] LABS: HEMATOCRIT 30.6 % (37.0-47.0); HEMOGLOBIN 9.4 gm/dL (12.0-15.0); MCH 26.3 pg (26.0-34.0); MCHC 30.8 g/dL (28.0-37.0); MCV 85.6 fL (80.0-100.0); PLATELET COUNT 278 thou/uL (150-400); RBC 3.58 mil/uL (4.20-5.00); RDW 17.1 % (10.5-14.5); WBC 22.3 thou/uL (4.0-11.0)
[2021-05-30 13:45] LABS: ABSOLUTE NEUTROPHILS 20.1 thou/uL (1.4-8.2)
[2021-05-30 13:46] LABS: ANISOCYTOSIS 1+
[2021-05-30 14:06] LABS: CALCIUM 8.7 mg/dL (8.5-10.1)
[2021-05-30 14:11] LABS: ALBUMIN 1.3 g/dL (3.4-5.0); DIRECT BILIRUBIN 0.3 mg/dL (<0.1-0.2); TOTAL BILIRUBIN 0.4 mg/dL (0.2-1.0); TOTAL PROTEIN 5.9 g/dL (6.4-8.2)
[2021-05-30 15:18] LABS: URINE BILIRUBIN NEGATIVE (Negative); URINE BLOOD TRACE (Negative); URINE CLARITY CLEAR; URINE COLOR YELLOW; URINE GLUCOSE-RANDOM* NEGATIVE (Negative); URINE KETONES NEGATIVE (Negative); URINE NITRITE-REFLEX NEGATIVE (Negative); URINE PROTEIN (DIPSTICK) NEGATIVE (Negative); URINE SPECIFIC GRAVITY 1.025 (1.005-1.035); URINE UROBILINOGEN 0.2 E.U./dl (0.2-1.0)
[2021-05-30 15:23] LABS: URINE LEUKOCYTES-REFLEX 2+ (Negative)
[2021-05-30 15:43] LABS: SQUAMOUS 0-3 Few /LPF (0-3); URINE WBC-REFLEX 6-15 Few /HPF (0-5)
[2021-05-30 15:44] LABS: CRYSTALS None Seen /LPF (None Seen); URINE RBC 1-2 Rare /HPF (NONE SEEN)
--- NOTE | 2021-05-30 15:48 | EKG ---
[facility] [place] [address] [place] [address] ELECTROCARDIOGRAM REPORT Name: TYRELL MEJIA [id number] Admission: 05/30/21 Attend Phys: Discharge: Date of : 58 Report #: [id number] [facility] ED Test Date: 2021-05-30 Test Time: 12:56:14 Pat Name: TYRELL CUEVAS Department: Room: Gender: F Amf Mechanic: lizbet : 1960 Requested By: Randal Segura Order Number: [id number] MD: Morales Parrish Measurements Intervals [place] Rate: 102 P: 49 WI: 136 QRS: 14 QRSD: 84 T: 63 QT: 309 QTc: 403 Interpretive Statements Sinus tachycardia Ventricular premature complex Aberrant conduction of SV complex(es) Borderline repol abnormality, lateral leads Compared to ECG 10/23/2020 13:23:59 Ventricular premature complex(es) now present Aberrant conduction of supraventricular beat(s) now present Sinus rhythm no longer present Electronically Signed On 05-30-2021 15:48:23 CDT by Morales Parrish [email or web address] <ELECTRONICALLY SIGNED> By: Morales Parrish MD, FACC 05/30/21 1548 1256 1256 Morales Parrish MD, [facility] /EPI
[2021-05-30 17:49] LABS: APTT 43.2 Seconds (24.5-32.8); INR 1.51; PROTIME 16.1 Seconds (10.5-12.1)
[2021-05-30 18:12] LABS: % SATURATION 14 % (20-39); IRON 16 ug/dL (50-170); TIBC 118 ug/dL (250-450)
[2021-05-30 18:44] LABS: FOLIC ACID 3.9 ng/mL (8.6-58.9)
[2021-05-30 20:22] VITALS: BP 130/66
[2021-05-30] MEDS ORDERED: ORAL ANALGESIC9 GM BUCCAL (20:41)
[2021-05-30] MEDS ORDERED: BUMETANIDE 1 MG1 M1 PO (20:41)
[2021-05-30] MEDS ORDERED: CYCLOBENZAPRINE5 MG PO (20:42)
[2021-05-30] MEDS ORDERED: ACID CONTROLLER20 MG PO (20:43)
[2021-05-30] MEDS ORDERED: BUTALB-APAP-CA1 EACH PO (20:43)
[2021-05-30] MEDS ORDERED: CULTURELLE KID1 EAC1 PO (20:44)
[2021-05-30] MEDS ORDERED: LYRICA100 MG PO (20:45)
[2021-05-30] MEDS ORDERED: LEVOFLOXACIN250 MG PO (20:45)
[2021-05-30] MEDS ORDERED: LEFLUNOMIDE 1010 MG PO (20:45)
[2021-05-30] MEDS ORDERED: NIFEDIPINE ER30 M1 PO (20:46)
[2021-05-30] MEDS ORDERED: MELOXICAM15 MG PO (20:46)
[2021-05-30] MEDS ORDERED: TOPROL XL25 MG PO (20:46)
[2021-05-30] MEDS ORDERED: ONDANSETRON HCL4 M3 PO (20:47)
[2021-05-30] MEDS ORDERED: PERCOCET 10-321 EAC1 PO (20:48)
[2021-05-30] MEDS ORDERED: XYZAL5 MG PO (20:49)
[2021-05-30] MEDS ORDERED: SPIRONOLACTONE25 MG PO (20:50)
[2021-05-30 21:18] LABS: CALCIUM 8.5 mg/dL (8.5-10.1); CREATININE 1.9 mg/dL (0.6-1.0); POTASSIUM 5.8 mmol/L (3.5-5.1)
[2021-05-30 21:26] VITALS: BP 121/60
[2021-05-30 21:45] VITALS: BP 94/52
--- NOTE | 2021-05-30 22:00 | NUR ---
PT IS TRANSFER FROM EMERGENCY ROOM . ALTERED MENTAL STATUS OBESTITY HAD TO HAVE SECURITY ASSIST WITH TRANSFER TO BED UPON ARIVAL. WEIGHT 284 LBS. ON 2 LITERS OF OXYGEN. LUNGS WHEEZES TO DIMINISHED. BOWEL SOUNDS HYPOACTIVE. PT HAS PAIN THAT COMES AND GOES IN THE GENERAL ABDOMEN SHE REPORTS. PT WAS SLEEPY ORINETED X2 BUT WAS ABLE TO GIVE HISTORY INTERMITENTLY. NPO PER ORDER AT THIS TIME. ADMISSION DONE UPON ARIVAL TO CRITICAL CARE UNIT AT THIS TIME PER NURSING. CT ABDOMEN SHOWED RIGHT RETROPERITONEUM NECROTIZING FASCITIS PER PHYSICAN.
[2021-05-31 00:02] VITALS: BP 103/63
[2021-05-31 03:11] VITALS: BP 116/67
[2021-05-31 05:29] LABS: CALCIUM 8.3 mg/dL (8.5-10.1); CREATININE 1.8 mg/dL (0.6-1.0); MAGNESIUM 2.2 mg/dL (1.8-2.4); POTASSIUM 5.5 mmol/L (3.5-5.1)
[2021-05-31 05:45] LABS: ABSOLUTE NEUTROPHILS 15.9 thou/uL (1.4-8.2); BASOPHILS 0.1 % (0.0-2.0); EOSINOPHILS 0.5 % (0.0-3.0); HEMATOCRIT 28.7 % (37.0-47.0); HEMOGLOBIN 8.9 gm/dL (12.0-15.0); LYMPHOCYTES 4.5 % (24.0-44.0); MCH 26.9 pg (26.0-34.0); MCHC 30.8 g/dL (28.0-37.0); MCV 87.4 fL (80.0-100.0); MONOCYTES 3.9 % (1.0-8.0); PLATELET COUNT 264 thou/uL (150-400); RBC 3.29 mil/uL (4.20-5.00); RDW 17.1 % (10.5-14.5); WBC 17.4 thou/uL (4.0-11.0)
[2021-05-31 07:30] VITALS: BP 103/55
--- NOTE | 2021-05-31 10:53 | NUR ---
TOOK OVER CARE FOR THIS PATIENT AT 0700. PATIENT SOMNOLENT, BARELY OPENING EYES TO VERBAL AND TACTILE STIMULATION. PATIENT RESPONDS WHEN SHE WANT TO. PATIENT ORIENTATED TO SELF ONLY. PATIENT CAN NOT PROVIDE WHERE SHE IS, WHAT MONTH OR YEAR IT IS. THIS NURSE WAS UNABLE TO GET CONSENT FROM PATIENT; PATIENT UNABLE TO USE PEN OR PENCIL TO PROPELY SIGN DOCUMENTATION EITHER. ATTEMPTED TO CALL PATIENT'S MOTHER WHO IS NEXT OF [place]; WAS UNABLE TO TALK TO MOTHER; PHONE CALLS WENT STRAIGHT TO VOICEMAIL. SURGEON AND HOSPITALIST GOING FORWARD WITH DRAIN PLACEMENT OUT OF MEDICAL NECESSITY. WOUND CARE CONSULTED AND CAME TO VISIT PATIENT. PATIENT SLEEPING IN BED AT THIS TIME. FALL PRECAUTIONS IN PLACE, CALL LIGHT WITHIN REACH.
[2021-05-31 11:18] LABS: BE(vivo) -6.4 mmol/L (-2 to +3); HCO3 19.9 mmol/L (22.0-26.0); PCO2 42.9 mmHg (35.0-45.0); PO2 61.4 mmHg (80.0-100.0); sO2 88.7 % (92.0-98.0)
[2021-05-31 11:20] LABS: pH 7.285 (7.360-7.450)
[2021-05-31 11:45] VITALS: BP 117/57
--- NOTE | 2021-05-31 12:15 | NUR ---
critical abg values obtained from respiratory therapy. paged and dr. chicas with critical lab values. dr. manriquez and aviva agree to place on bipap. called interventional radiology to report that bipap will be required; IR unsure how procedure will take place as patient is required to be in prone position. IR plans to let me know their plan to proceed.
--- NOTE | 2021-05-31 12:52 | NUR ---
WOUND CONSULT; THIS IS AN OBESE WOMAN WITH BLILATERAL LE AMPUTATIONS. I WAS CONSULTED BUT I COULD NOT VISUALIZE ANYTHING WITH THE EXCEPTION OF SOME FRICTION RASH ON THE BUTTOCKS. RECOMMENDATIONS; -ZGUARD CREAM TO BUTTOCKS BILATERALLY BID -Q2H TURNS AT A MINIMUM.
[2021-05-31 15:00] VITALS: BP 114/49
--- NOTE | 2021-05-31 16:50 | NUR ---
Patient admits from [facility] with necrotizing facitis. Patient back wedger care resident of [facility]. Patient has AkA. Initially could not reach mom via her cell phone. Rn called and phys called. Called [facility] to question if we needed welfare check for mom. Facility reports mother was just at facility and aware patient at hospital. Mother arrived at hospital. She sp with Rn and signed consent for sx. She gave RN number for patients sister as alternate phone. Sp with [facility] who reports patient utilizes wc, antoine lift for transfers. She uses oxygen only at night. She is currently on BIPAP. [facility] faxed POA paperwork placed in chart. No furtehr needs.
[2021-05-31 19:53] VITALS: BP 118/70
[2021-06-01] VITALS (17 sets, daily range): BP systolic 110–132; BP diastolic 60–76
[2021-06-01 04:34] LABS: HEMATOCRIT 29.2 % (37.0-47.0); HEMOGLOBIN 8.7 gm/dL (12.0-15.0); MCH 25.8 pg (26.0-34.0); MCHC 29.9 g/dL (28.0-37.0); MCV 86.4 fL (80.0-100.0); RBC 3.38 mil/uL (4.20-5.00); RDW 17.2 % (10.5-14.5); WBC 15.6 thou/uL (4.0-11.0)
[2021-06-01 04:39] LABS: CALCIUM 8.5 mg/dL (8.5-10.1); CREATININE 1.6 mg/dL (0.6-1.0)
[2021-06-01 05:09] LABS: POTASSIUM 5.7 mmol/L (3.5-5.1)
--- NOTE | 2021-06-01 07:18 | NUR ---
PATIENT CARE WAS ASSUMED AT SHIFT CHANGE. PATIENT WAS ASSESSED AND MEDS PASSED. PATIENT HAD REQUESTED PAIN MEDS FOR HER BACK AT BED TIME. THE PAIN MEDS WERE GIVEN AND PATIENT DID SLEEP APROX EIGHT HOURS THIS SHIFT. PATIENT ORDERS STATED FOR HER TO BE NPO AFTER MIDNIGHT AND THIS WAS CARRIED OUT. PATIENT WAS PLEASENT TO STAFF NO VERBAL OUT BURST. ROUNDING WAS DONE. THE BED IS IN A LOW AND LOCKED POSITION
--- NOTE | 2021-06-01 11:39 | HC ---
[facility] [place] [address] CONSULTATION Name: TYRELL MEJIA BEBETO Room #: 203-P ADM IN M.R.#: [id number] Admission: 05/30/21 Attend Phys: Familia Powell MD Discharge: Date of : 58 Report #: [id number] THIS REPORT FOR: cc: Alan Thomas Ryan D. DO Barry, Joseph W. MD ~ DATE OF SERVICE: 05/31/2021 INFECTIOUS DISEASE CONSULTATION ATTENDING PHYSICIAN: Dr. Powell. REASON FOR EVALUATION: Perinephric abscess. HISTORY OF PRESENT ILLNESS: The patient examined. This is a 61-year-old woman with significant medical history including schizoaffective disorder, diabetes mellitus, who was in a facility, presented to the Emergency Department with altered mental status. Apparently had at one point complained of abdominal pain and unable to give any details of the history due to somnolence and probably profound encephalopathy. Evaluation was undertaken in the Emergency Room. Chest x-ray showed some bibasilar heterogeneous opacities, question of atelectasis, could not exclude pneumonitis. Lactic acid 0.8. CBC: White count of 22.3. Coronavirus testing was negative. CT abdomen and pelvis showed multiloculated 4 cm abscess in the right upper pole of the kidney, area of phlegmon inflammation and gas in the right retroperitoneum along the iliopsoas muscles, there is question of necrotizing fasciitis probable cellulitis involving the abdominal wall, multifocal infiltrates in the lung bases. Blood cultures collected at the time of admission are sterile thus far. Urinalysis was fairly unremarkable. Urine culture with greater than 3 organisms, question of contamination, empirically started on combination therapy with Zosyn and vancomycin. She is scheduled to undergo procedure to access the abscess site. Currently, she is afebrile and not responsive. She is mildly hemodynamically unstable. Saturations are 97% on supplemental oxygen 3 liters per nasal cannula. ALLERGIES: LISTED TO CEPHALOSPORINS, AUGMENTIN, PHENOBARBITAL. CURRENT MEDICATIONS: Include vancomycin, ipratropium, albuterol inhaler, Zosyn barely suggests allergic reaction to Augmentin, hydrocodone, acetaminophen. PAST MEDICAL HISTORY: As noted above. Schizoaffective disorder, diabetes mellitus, hypertension, anxiety, peripheral vascular disease, migraines, lymphedema, cardiomyopathy with congestive heart failure, chronic renal insufficiency, anemia, arthritis. SOCIAL HISTORY: Nonsmoker, no ethanol, no illicit drug use. [address] [address] CONSULTATION Name: TYRELL MEJIA BEBETO Room #: 203-P [facility] IN .R.#: [id number] Admission: 05/30/21 Attend Phys: Familia Powell MD Discharge: Date of : 58 Report #: [id number] FAMILY HISTORY: Noncontributory. REVIEW OF SYSTEMS: Not obtainable. PHYSICAL EXAMINATION: GENERAL: She appears chronically ill and undernourished. She is barely responsive. VITAL SIGNS: Temperature 98.6, pulse 110, respirations 20, blood pressure 103/55, saturation 97% on 3 liters. SKIN: Warm, dry, no rashes. HEENT: Normocephalic. Extraocular muscles intact. NECK: Supple. LUNGS: Diminished breath sounds. Few scattered crackles at the bases. HEART: Tachycardic, regular, do not appreciate a murmur. ABDOMEN: Morbidly obese, large pannus, firm. No evident peritoneal signs. EXTREMITIES: Bilateral BKAs. GENITOURINARY AND RECTAL: Deferred. LABORATORY DATA: Blood and urine cultures as described above. Electrolytes from this morning: Sodium 139, potassium 5.5, chloride 108, bicarbonate 21, anion gap of 10, BUN and creatinine 40 and 1.8, glucose is 78. CBC: White count of 17.4, H and H and H 8.9 and 28.7, platelets of 264. TSH is 0.837. Iron level of 16, TIBC of 118 which is low, percent saturation of 14, low as well. IMAGING: As noted above. CT of the head, no acute process. ASSESSMENT AND PLAN: Right perinephric abscess. The patient has extensive medical history who is severely ill, although not unstable at this point, I agree with plans to access drainage to the extent possible, may need more open procedure, all that would require additional risk. She is quite tenuous at this point. Continue to monitor expectantly, certainly at risk for complications as related to her overall situation. <ELECTRONICALLY SIGNED> By: Fredy Mace MD 06/01/21 1139 [id number] Fredy Mace MD /nt
[2021-06-02 03:57] VITALS: BP 123/62
--- NOTE | 2021-06-02 04:01 | NUR ---
PATIENT RESTING IN HER ROOM AAOX3. PATIENT DENIES PAIN AT THIS TIME. PATIENT IS BEDBOUND SHE HAS BILATERAL BKA. PATIENT HAS 2 DRAINS TO THE RIGHT LOWER SIDE OF HER BACK DUE TO RENAL ABSCESS. CHRONIC WHEELER IS IN PLACE. O2 100% ON 3 LITERS. SHE STATES THAT THIS IS WHAT SHE WEARS AT HOME WELL. IV IS IN THE LEFT UPPER ARM/ CHEST AREA. PATIENT IS EATING ICE CHIPS. PATIENT DID HAVE 1 SMALL BM ON THIS SHIFT. SHE HAS COME DIFFICULTY WITH FINE MOTOR SKILLS TO BUE. SHE DROPPED HER CUP OF ICE ON MULTIPLE OCCASSIONS. PATIENT DOES HAVE MU;TIPLE ANTIBIOTICS. NO S/S OF DISTRESS NOTED. WILL CONTINUE TO MONITOR.
[2021-06-02 07:13] VITALS: BP 114/60
[2021-06-02 11:51] VITALS: BP 115/61
[2021-06-02 12:48] LABS: ABSOLUTE NEUTROPHILS 18.8 thou/uL (1.4-8.2); BASOPHILS 0.1 % (0.0-2.0); EOSINOPHILS 0.1 % (0.0-3.0); HEMATOCRIT 28.7 % (37.0-47.0); HEMOGLOBIN 8.6 gm/dL (12.0-15.0); LYMPHOCYTES 2.4 % (24.0-44.0); MCHC 29.9 g/dL (28.0-37.0); MONOCYTES 3.3 % (1.0-8.0); PLATELET COUNT 253 thou/uL (150-400); POLYS 94.1 % (36.0-66.0); RDW 17.7 % (10.5-14.5)
[2021-06-02 13:02] LABS: ALBUMIN 1.3 g/dL (3.4-5.0); CALCIUM 8.5 mg/dL (8.5-10.1); CREATININE 1.5 mg/dL (0.6-1.0); MAGNESIUM 2.6 mg/dL (1.8-2.4); POTASSIUM 5.6 mmol/L (3.5-5.1); TOTAL BILIRUBIN 0.7 mg/dL (0.2-1.0); TOTAL PROTEIN 6.1 g/dL (6.4-8.2)
[2021-06-02 15:29] VITALS: BP 125/76
--- NOTE | 2021-06-02 18:50 | NUR ---
Patient is a/ox2 with confusion. vss afebrile. anxious through out day. restless and moves around alot in bed to get comfortable. prn norco given and effective. poor appetite but drinks well. continues on ABT with no adverse side effects noted. SM BM noted. 2 renal drains orders to flush daily. mininal drainage.Incont. of bowel, harrell in place and patent.
[2021-06-02 19:20] VITALS: BP 131/83
--- NOTE | 2021-06-03 | NUR ---
PATIENT CARES WHERE ASSUMED AT SHIFT CHANGE. PATIENT WAS ASSESSED AND MEDS WHERE PASSED. PATIENT HAD A BM HALF WAY THROUGH THIS SHIFT. PATIENT WAS GIVEN A BED BATH AND CLEANING UNDER THE PANUS WAS ALSO DONE. PANUS FOLD WAS WASHED AND DRYED. OINTMENT WAS APPLIED WITH A STRIP OF INTERDRY WAS PLACED UNDER THE PANUS. ROUNDINGWAS DONE. THE BED IS IN A LOW AND LOCKED POSITION,
--- NOTE | 2021-06-03 01:06 | NUR ---
PATIENT CONTINUES TO HAVE LARGE WATERY STOOLS AT THIS TIME SHE HAS HAD THREE STOOLS. FROME THE MAR THIS PATIENT HAS BEEN GIVEN SEVERAL LAXATIVES AND MEDS TO PROMOTEA STOOL DUE TO SHE DID NOT HAVE A STOOL SINCE 05/29. THREE BED BATHS GIVEN
[2021-06-03 04:26] VITALS: BP 140/77
[2021-06-03 04:44] LABS: ABSOLUTE NEUTROPHILS 15.7 thou/uL (1.4-8.2); BASOPHILS 0.2 % (0.0-2.0); EOSINOPHILS 0.2 % (0.0-3.0); HEMATOCRIT 26.8 % (37.0-47.0); HEMOGLOBIN 8.2 gm/dL (12.0-15.0); MCH 26.2 pg (26.0-34.0); MCHC 30.8 g/dL (28.0-37.0); MCV 85.2 fL (80.0-100.0); MONOCYTES 4.4 % (1.0-8.0); PLATELET COUNT 243 thou/uL (150-400); POLYS 92.2 % (36.0-66.0); RBC 3.15 mil/uL (4.20-5.00); RDW 17.4 % (10.5-14.5)
[2021-06-03 05:34] LABS: CALCIUM 8.4 mg/dL (8.5-10.1); CREATININE 1.5 mg/dL (0.6-1.0); MAGNESIUM 2.5 mg/dL (1.8-2.4); PHOSPHORUS 6.1 mg/dL (2.5-4.9); POTASSIUM 4.9 mmol/L (3.5-5.1)
[2021-06-03 07:35] VITALS: BP 128/75
[2021-06-03 11:20] VITALS: BP 117/70
[2021-06-03 15:50] VITALS: BP 110/67
--- NOTE | 2021-06-03 17:11 | NUR ---
faxed clinical updates to [facility] no weekend dc anticipated.
[2021-06-03 20:15] VITALS: BP 116/79
--- NOTE | 2021-06-04 04:00 | NUR ---
PT IS A/O X4 AND IS ON BEDREST. 4 LITERS O2 NC WITH CONTINOUS PULSE OX IN PLACE. DESATS QUICKLY WITH MOVEMENT. PT IS SOB WITH EXERTION. VSS. AFEBRILE. C/O PAIN. PO PRN PAIN MEDICATION GIVEN DIRECTED. UNRELIEVED. NOTIFIED WOOL MIXER. ORDERS GIVEN FOR A ONE TIME IV PAIN MEDICATION FOR BREAK THROUGH PAIN. PARTIAL RELIEF NOTED. IN ROOM NEAR NURSES STATION WITH FREQUENT CHECKS. WHEELER IN PLACE. INCONTINENT OF BOWEL X1 THIS SHIFT. DRAINS ARE CURRENTLY IN PLACE X2 TO RIGHT SIDE OF ABDOMEN. NO OUTPUT NOTED FROM EITHER DRAIN. ZGUARD APPLIED TO BUTTOCKS FOR REDNESS. PT IN ROOM NEAR NURSES STATION WITH FREQUENT CHECKS. FALL PRECAUTIONS IN PLACE, CALL LIGHT IS WITHIN REACH. PT CALLS OUT APPROPRIATELY FOR ASSISTANCE.
[2021-06-04 04:45] VITALS: BP 119/71
[2021-06-04 07:30] VITALS: BP 97/54
[2021-06-04 11:15] VITALS: BP 102/48
[2021-06-04 12:46] LABS: ALBUMIN 1.2 g/dL (3.4-5.0); CALCIUM 8.4 mg/dL (8.5-10.1); CREATININE 1.3 mg/dL (0.6-1.0); MAGNESIUM 2.3 mg/dL (1.8-2.4); POTASSIUM 4.2 mmol/L (3.5-5.1); TOTAL BILIRUBIN 0.5 mg/dL (0.2-1.0); TOTAL PROTEIN 5.8 g/dL (6.4-8.2)
[2021-06-04 12:48] LABS: ABSOLUTE NEUTROPHILS 11.3 thou/uL (1.4-8.2); BASOPHILS 0.1 % (0.0-2.0); HEMATOCRIT 25.7 % (37.0-47.0); HEMOGLOBIN 7.8 gm/dL (12.0-15.0); LYMPHOCYTES 4.4 % (24.0-44.0); MCH 25.8 pg (26.0-34.0); MCHC 30.2 g/dL (28.0-37.0); MCV 85.6 fL (80.0-100.0); MONOCYTES 4.3 % (1.0-8.0); PLATELET COUNT 209 thou/uL (150-400); POLYS 90.2 % (36.0-66.0); RDW 17.6 % (10.5-14.5); WBC 12.6 thou/uL (4.0-11.0)
[2021-06-04 15:40] VITALS: BP 123/57
[2021-06-04 20:21] VITALS: BP 124/60
[2021-06-05 03:12] LABS: ABSOLUTE NEUTROPHILS 9.4 thou/uL (1.4-8.2); BASOPHILS 0.3 % (0.0-2.0); EOSINOPHILS 1.3 % (0.0-3.0); HEMATOCRIT 24.1 % (37.0-47.0); HEMOGLOBIN 7.6 gm/dL (12.0-15.0); LYMPHOCYTES 7.2 % (24.0-44.0); MCH 26.6 pg (26.0-34.0); MCHC 31.6 g/dL (28.0-37.0); MCV 84.2 fL (80.0-100.0); MONOCYTES 4.6 % (1.0-8.0); PLATELET COUNT 185 thou/uL (150-400); POLYS 86.6 % (36.0-66.0); RBC 2.87 mil/uL (4.20-5.00); RDW 17.4 % (10.5-14.5); WBC 10.8 thou/uL (4.0-11.0)
[2021-06-05 03:22] LABS: CALCIUM 8.3 mg/dL (8.5-10.1); CREATININE 1.1 mg/dL (0.6-1.0); POTASSIUM 4.1 mmol/L (3.5-5.1)
[2021-06-05 04:02] VITALS: BP 112/54
[2021-06-05 07:30] VITALS: BP 113/62
--- NOTE | 2021-06-05 08:06 | NUR ---
PT NOT COMPLIANT WITH REPOSITIONING, FAVORS LAYING ON RIGHT SIDE. BOTTOM IS VERYEXCORIATED WITH OPEN AREAS. BARRIAR CRM APPLIED.WHEELER IN PLACE. PT HAD LOOSE STOOL X 3. LIDODERM ADDED FOR C/O INCREASED PAIN . PERINEPHRIC DRAINS IN PLACE WITH ABOUT ONLY 10CC OUT.
[2021-06-05 11:40] VITALS: BP 127/62
[2021-06-05 15:40] VITALS: BP 103/53
[2021-06-05 19:32] VITALS: BP 117/65
[2021-06-06 03:27] LABS: CREATININE 1.1 mg/dL (0.6-1.0); POTASSIUM 3.9 mmol/L (3.5-5.1)
[2021-06-06 03:44] VITALS: BP 116/49
[2021-06-06 04:03] LABS: ABSOLUTE NEUTROPHILS 7.3 thou/uL (1.4-8.2); BASOPHILS 0.3 % (0.0-2.0); EOSINOPHILS 1.6 % (0.0-3.0); HEMATOCRIT 22.8 % (37.0-47.0); HEMOGLOBIN 7.2 gm/dL (12.0-15.0); LYMPHOCYTES 9.3 % (24.0-44.0); MCH 26.7 pg (26.0-34.0); MCHC 31.7 g/dL (28.0-37.0); MCV 84.2 fL (80.0-100.0); MONOCYTES 6.1 % (1.0-8.0); PLATELET COUNT 183 thou/uL (150-400); POLYS 82.7 % (36.0-66.0); RDW 17.4 % (10.5-14.5); WBC 8.8 thou/uL (4.0-11.0)
--- NOTE | 2021-06-06 07:29 | NUR ---
PT SLOWLY PROGRESSING TOWARD GOALS. SHE IS ON 2L O2 PER NC AND GENERALLY SATS 98-100%, BUT DOES DESATURATE DURING ACTIVITY OR MOVEMENT. REPOSITIONED AT ROUTINE INTERVALS. RIGHT SIDED DRAINS WITH SCANT OUTPUT, LESS THAN 5CC EACH DRAIN. WHEELER IN PLACE TO DD WITH ADEQUATE OUTPUT. A&OX3-4 AND ABLE TO MAKE NEEDS KNOWN.
[2021-06-06 07:30] VITALS: BP 116/70
--- NOTE | 2021-06-06 09:05 | NUR ---
PT W/ NECROTIZING FASCIATIS, MORBID OBESITY, HAVING MULTIPLE EPISODES OF LOOSE BM, ZOFRAN GIVEN FOR NAUSEA, PT REFUSES ALL LAXITIVES AND STOOL SOFTNERS AND WANT TO MEDS TO STOP BM. PT MAY NEED FECAL MANAGEMENT TO PROTECT SKIN.
[2021-06-06 11:30] VITALS: BP 133/72
[2021-06-06 15:26] VITALS: BP 11/69; BP 111/69
--- NOTE | 2021-06-06 19:10 | HC ---
[facility] [place] [address] CONSULTATION Name: MARIA ISABEL FAITH,TYRELL TATE Room #: 203-P ADM IN M.R.#: [id number] Admission: 05/30/21 Attend Phys: Familia Powell MD Discharge: Date of : 58 Report #: [id number] THIS REPORT FOR: cc: Alan Thomas Ryan D. DO Althoff, Jeffrey R. MD ~ DATE OF SERVICE: 06/01/2021 CHIEF COMPLAINT: Gluteal ulcerations. HISTORY OF PRESENT ILLNESS: This is a 61-year-old female patient who is admitted to the hospital with what was noted to be a right kidney with large area of phlegmon and inflammation and gas in the right retroperitoneum, possible abscess and necrotizing infection. She was noted to have gluteal ulcers. I am asked to see her with regard to wound care. The patient denies significant pain at this time. PAST MEDICAL HISTORY: Positive for history of schizoaffective disorder, type 2 diabetes mellitus, morbid obesity, hypertension, anxiety, peripheral vascular disease, history of migraines, lymphedema, congestive heart failure, chronic kidney disease and anemia. SOCIAL HISTORY: Negative for alcohol or tobacco use. MEDICATIONS: Include Zoloft, prednisone, vitamin C, fenofibrate, Percocet, levothyroxine, hydroxyzine, ferrous sulfate, ergocalciferol, ipratropium and albuterol, trazodone, buspirone, tamsulosin, spironolactone. ALLERGIES: INCLUDE AMOXICILLIN, CEPHALOSPORINS, CLAVULANIC ACID, CODEINE, MOLD, PHENOBARBITAL. SHE ALSO SUFFERS FROM SEASONAL ALLERGIES. FAMILY HISTORY: Noncontributory. REVIEW OF SYSTEMS: CONSTITUTIONAL: The patient denies fever, chills or weight loss. NEUROLOGICAL: The patient denies focal weakness, numbness or tingling. EYES: The patient denies visual changes, redness or drainage. ENT: The patient denies earache, nasal drainage or sore throat. CARDIOVASCULAR: The patient denies chest pain, palpitation or diaphoresis. PULMONARY: The patient denies cough or shortness of breath. GASTROINTESTINAL: The patient complains of mild abdominal discomfort and some perirectal discomfort as well. Others systems in a 14-point review of systems are negative. PHYSICAL EXAMINATION: VITAL SIGNS: At this time include temperature 36.7, pulse 107, respiratory rate [facility] [address] [place] [address] CONSULTATION Name: TYRELL MEJIA Room #: 203-P [facility] IN ..#: [id number] Admission: 05/30/21 Attend Phys: Familia Powell MD Discharge: Date of : 58 Report #: [id number], blood pressure 117/57. GENERAL: This is a somewhat chronically ill-appearing female patient who appears to be in minimal distress. HEENT: Head is normocephalic. NECK: Supple. LUNGS: Clear. ABDOMEN: Soft, bowel sounds present. GENITOURINARY: Examination of the sacral-gluteal region demonstrates what appears to be same scattered stage 3 pressure ulcerations. There is some mild erythema in the perianal and gluteal region that is mildly tender. It is not obviously fluctuant. EXTREMITIES: Lower extremities demonstrate prior above-knee amputations. CLINICAL IMPRESSION: 1. Scattered stage 3 pressure ulcer in the sacral-gluteal region. 2. History of bilateral above-knee amputations, which are currently closed. 3. Type 2 diabetes mellitus. 4. Hypertension. 5. Chronic kidney disease. 6. Schizoaffective disorder. 7. Severe protein-calorie malnutrition with albumin of 1.3. RECOMMENDATIONS: At this point in time, I recommend barrier cream and otherwise the gluteal-sacral region be left open to air. She will need a low air loss surface and q. 2 hour turning and positioning, need ongoing nutritional support. She is being seen by surgery with regard to the possible abscess. I appreciate being asked to see her in consultation. <ELECTRONICALLY SIGNED> By: Jerrod Guzmán MD 06/06/21 1910 [id number] [id number] Jerrod Guzmán MD /nt
[2021-06-06 20:42] VITALS: BP 127/57
[2021-06-07] VITALS (8 sets, daily range): BP systolic 96–141; BP diastolic 50–75
[2021-06-07 01:06] LABS: GLYCOHEMOGLOBIN (HGB A1C) 5.6 % (4.8-5.6)
--- NOTE | 2021-06-07 01:21 | NUR ---
ASSESSED AT START OF SHIFT PT C/O BEING UNCOMFORTABLE. REPOSITIONED SEVERAL TIMES. HYDROCODONE GIVEN FOR PAIN AND MELOTNIN GIVEN FOR SLEEP. ON 2L OF O2 HS. FECAL TUBE AND FOLLEY INTACT. ISOLATION MAINTAINED. AWAITING C-DIFF. FALL PREC IN PLACE AND CALL LIGHT AT REACH WILL CONT TO MONITOR.
[2021-06-07 09:57] LABS: HEMOGLOBIN 6.9 gm/dL (12.0-15.0)
[2021-06-07 09:59] LABS: HEMATOCRIT 22.5 % (37.0-47.0); MCH 26.1 pg (26.0-34.0); MCHC 30.7 g/dL (28.0-37.0); MCV 85.1 fL (80.0-100.0); RBC 2.65 mil/uL (4.20-5.00); RDW 17.5 % (10.5-14.5); WBC 10.7 thou/uL (4.0-11.0)
--- NOTE | 2021-06-07 15:43 | NUR ---
Spoke with patient and Lizzeth at [facility]. Updated patient to discharge in am with IV antibiotics. Sp with Dr Mace ID this am. Faxed clinical updates.
[2021-06-08 00:01] VITALS: BP 149/78
--- NOTE | 2021-06-08 04:30 | NUR ---
PATIET RESTING IN BED WATCHING TV. PATIENT STATES THAT SHE HAS BEEN HAVING FREQUENT PAIN TO HER ABDOMEN AND BACK. PATIENT HAS BEEN GIVEN PAIN MEDS X2 DURING THIS SHIFT WELL ZOFRAN FOR NAUSEA. PATIENT HAD A RECTAL TUBE THAT HAS BEEN D/C THIS SHIFT AFTER NEGATIVE C-DIFF AND DECREASE IN STOOL. PATIENT HAS DRAINS X2 WITH 1 LOCATED POSTERIORLY ON THE RIGHT FLANK AND 1 ANTERIOR ON THE ABDOMEN. WHEELER ALSO IN PLACE. PATIENT IS ON 3L NC. PATIENT HAS BEEN REPOSITIONED MULTIPLE TIMES BUT CONTINUES TO HAVE ISSUES WITH COMFORT. SHE IS COMPLAINT WITH HER MEDICATION. ALL VITALS ARE STABLE. PATIENT DID RECEIVE 1 UNIT PRBC THIS EVENING. NO S/S OF DISTRESS NOTED. WILL CONTINUE TO MONITOR FOR CHANGES IN PATIENT STATUS.
[2021-06-08 05:34] LABS: HEMOGLOBIN 7.7 gm/dL (12.0-15.0); MCH 27.9 pg (26.0-34.0); MCHC 32.3 g/dL (28.0-37.0); MCV 86.4 fL (80.0-100.0); RBC 2.78 mil/uL (4.20-5.00); RDW 17.4 % (10.5-14.5); WBC 9.9 thou/uL (4.0-11.0)
[2021-06-08 07:58] VITALS: BP 111/55
[2021-06-08 15:30] VITALS: BP 108/56
--- NOTE | 2021-06-08 17:47 | NUR ---
PT IS ALERT AND ORIENTED X4. PT IS SR ON THE MONITOR AND 3L NC. PT HAS BEEN REQUESTING TO TURN Q1HR. PT HAS WOUND ON COCCYX. CLEANED 3 TIMES THIS SHIFT AND PLACED BARRIER CREAM ON AREA. INTERDRY CLOTH IS PLACE. PT HAS DRAIN IN RIGHT PLANK AND RIGHT LOWER QUADRANT OF ABD. PT HAS HAD COMPLAINTS OF PAIN IN BACK AND ABD. GAVE PRN HYDROCODONE FOR PAIN RELIEF AND WAS EFFECTIVE PAIN RELIEF. WILL CONTINUE TO MONITOR.
[2021-06-08 19:35] VITALS: BP 113/51
[2021-06-09 00:31] VITALS: BP 123/47
[2021-06-09 02:07] LABS: HEMATOCRIT 22.4 % (37.0-47.0); MCH 27.2 pg (26.0-34.0); MCHC 31.1 g/dL (28.0-37.0); MCV 87.5 fL (80.0-100.0); RBC 2.55 mil/uL (4.20-5.00); RDW 17.9 % (10.5-14.5); WBC 10.3 thou/uL (4.0-11.0)
[2021-06-09 02:12] LABS: CALCIUM 7.8 mg/dL (8.5-10.1); MAGNESIUM 1.6 mg/dL (1.8-2.4); POTASSIUM 4.1 mmol/L (3.5-5.1)
[2021-06-09 04:07] VITALS: BP 130/61
--- NOTE | 2021-06-09 05:38 | NUR ---
PT HAS COMPLAINED OF NAUSEA THROUGHOUT THE SHIFT. EARLY IN THE NIGHT SHE STATED THE PRN ZOFRAN HADN'T BEEN WORKING. RECEIVED ORDERS FOR SIMETHICONE PO AND COMPAZINE IV PRN, EACH GIVEN X1 WITH MARGINAL EFFECT. PT HAD AN EPISODE OF COFFEE-GROUND EMESIS WHICH WAS ALSO BLOOD-TINGED AROUND 0100; SHE ALSO HAD A MILDLY ELEVATED TEMP OF 99.7. PROVIDER NOTIFIED, RECEIVED NEW ORDERS FOR STAT LABS, KUB, AND NG TUBE PLACEMENT, WELL COMPAZINE SUPPOSITORY. LABS DRAWN, HGB NOTED TO BE 7.0, DOWN FROM 7.7 APPROX 20 HOURS PRIOR. NURSING STAFF ATTEMPTED TO PLACE NG TUBE X4 ATTEMPTS BUT WERE UNABLE TO ADVANCE TUBE SUFFICIENTLY. KUB PERFORMED, SHOWED MODERATE ILEUS WITHOUT BOWEL OBSTRUCTION. PROVIDER UPDATED, RECEIVED ORDERS TO REDRAW H&H AT 0800, PLACE PT ON NPO DIET, AND CONSULT GI. PT IS CURRENTLY RESTING WITH EYES CLOSED AND HAS NO FURTHER EPISODES OF EMESIS AT THIS TIME. WILL CONTINUE TO OBSERVE FOR CHANGES.
[2021-06-09 08:00] VITALS: BP 127/47
--- NOTE | 2021-06-09 11:17 | NUR ---
patient with abdominal abscesses with drain placed. Patient will not dc over weekend. updated [facility].
[2021-06-09 12:08] LABS: HEMATOCRIT 20.8 % (37.0-47.0)
[2021-06-09 12:15] LABS: HEMOGLOBIN 6.4 gm/dL (12.0-15.0)
[2021-06-09 14:04] LABS: BE(vivo) -4.3 mmol/L (-2 to +3); PCO2 55.7 mmHg (35.0-45.0); PO2 97.6 mmHg (80.0-100.0); pH 7.234 (7.360-7.450); sO2 96.1 % (92.0-98.0)
[2021-06-09 15:57] VITALS: BP 109/48
[2021-06-09 20:15] VITALS: BP 118/51
[2021-06-09 21:50] VITALS: BP 104/65; BP 117/51; BP 127/58
[2021-06-10 04:13] VITALS: BP 106/53
--- NOTE | 2021-06-10 04:39 | NUR ---
RECEIVED PATIENT AT 1900H.ON NASAL CANNULA AT 3LPM SATURATING WELL.WITH WHEELER CATHETER INTACT.WITH 2 DRAINS INTACT, 1 AT RIGHT LOWER QUADRANT OF ABDOMEN AND 1 AT RIGHT FLANK.TRANSFUSED 1 UNIT PRBC WHICH WAS COUNTERCHECKED BY BLOOD BANK STAFF AND ANOTHER CCU STAFF NURSE.HAD NO TRANSFUSION REACTION NOTED AFTER.ALL NEEDS ATTENDED.TO CONTINOUSLY MONITOR.
[2021-06-10 04:49] LABS: ALBUMIN 1.1 g/dL (3.4-5.0); CALCIUM 7.7 mg/dL (8.5-10.1); POTASSIUM 4.2 mmol/L (3.5-5.1); TOTAL BILIRUBIN 0.4 mg/dL (0.2-1.0); TOTAL PROTEIN 5.3 g/dL (6.4-8.2)
[2021-06-10 05:26] LABS: HEMATOCRIT 23.7 % (37.0-47.0); HEMOGLOBIN 7.4 gm/dL (12.0-15.0); MCH 28.2 pg (26.0-34.0); MCHC 31.4 g/dL (28.0-37.0); MCV 89.8 fL (80.0-100.0); RBC 2.64 mil/uL (4.20-5.00); RDW 18.3 % (10.5-14.5); WBC 10.6 thou/uL (4.0-11.0)
[2021-06-10 07:00] VITALS: BP 124/51
[2021-06-10 11:30] VITALS: BP 125/49
[2021-06-10 16:45] VITALS: BP 103/54
--- NOTE | 2021-06-10 17:13 | NUR ---
no weekend dc anticipated patient resides at [facility].
[2021-06-10 19:11] VITALS: BP 114/54
--- NOTE | 2021-06-11 04:04 | NUR ---
RECEIEVED PATIENT AT 1900H.ON NASAL CANNULA 2LPM, SATURATING WELL.WITH RIGHT FOREARM PICC LINE PATENT.WITH 2 DRAINS, ONE AT THE RIGHT LOWER ABDOMINAL QUADRANT AND ONE AT RIGHT FLANK.HAD ORDER FROM DR. CRAWFORD TO CONNECT DRAINS TO SUCTION BULD AND NOT ON BAGS BUT JASON DRAINS AVAILABLE DOESNT SEEM TO FIT ON THE CURRENT DRAIN TUBINGS.SPOKE WITH DR. CRAWFORD AND HE TOLD TO JUST KEEP THE DRAINS IT IS.ALL NEEDS ATTENDED.TO CONTINOUSLY MONITOR.
[2021-06-11 05:05] VITALS: BP 116/51
[2021-06-11 05:27] LABS: HEMATOCRIT 23.2 % (37.0-47.0); HEMOGLOBIN 7.2 gm/dL (12.0-15.0); MCH 27.7 pg (26.0-34.0); MCHC 31.1 g/dL (28.0-37.0); MCV 89.3 fL (80.0-100.0); RBC 2.6 mil/uL (4.20-5.00); RDW 18.8 % (10.5-14.5); WBC 11.4 thou/uL (4.0-11.0)
[2021-06-11 05:49] LABS: INR 1.46; PROTIME 15.6 Seconds (10.5-12.1)
[2021-06-11 05:53] LABS: CALCIUM 7.7 mg/dL (8.5-10.1); CREATININE 1.2 mg/dL (0.6-1.0); POTASSIUM 4.1 mmol/L (3.5-5.1); TOTAL BILIRUBIN 0.3 mg/dL (0.2-1.0); TOTAL PROTEIN 5.2 g/dL (6.4-8.2)
[2021-06-11 08:06] VITALS: BP 114/48
[2021-06-11 11:58] VITALS: BP 105/62
[2021-06-11 15:12] VITALS: BP 97/43
--- NOTE | 2021-06-11 18:06 | NUR ---
REPORT GIVEN TO GELA CARRASCO ON . PT TRANSPORTED BY STAFF TO ROOM 460. ALL BELONGINGS PACKAGED UP AND TAKEN WITH PATIENT.
[2021-06-11 18:20] VITALS: BP 91/53
[2021-06-11 19:45] VITALS: BP 95/60
[2021-06-12] VITALS (56 sets, daily range): BP systolic 60–131; BP diastolic 32–101
--- NOTE | 2021-06-12 04:49 | NUR ---
PT IS A/O X4 AND IS ON BEDREST. 3 LITERS NC WITH SCHEDULED BRTX GIVEN DIRECTED. VSS. AFEBRILE. C/O PAIN TO RIGHT LOWER SIDE AT SITE OF JASON DRAINS. REINFORCED DRSG AND PLACED FOAM DRSG TO SMALL OPEN AREA. ZGUARD APPLIED TO BUTTOCKS. WHEELER REMAINS IN PLACE DRAINING YELLOW URINE. BREAKTHROUGH PAIN TREATED WITH A ONE TIME DOSE ORDERED BY CUSTOMER ADVISOR. FALL PRECUATIONS IN PLACE, CALL LIGHT IS WITHIN REACH.
[2021-06-12 10:25] LABS: HEMATOCRIT 24.8 % (37.0-47.0); HEMOGLOBIN 7.6 gm/dL (12.0-15.0); MCH 27.8 pg (26.0-34.0); MCHC 30.5 g/dL (28.0-37.0); MCV 91.3 fL (80.0-100.0); RBC 2.71 mil/uL (4.20-5.00); RDW 19.9 % (10.5-14.5); WBC 13.2 thou/uL (4.0-11.0)
[2021-06-12 10:38] LABS: CREATININE 1.9 mg/dL (0.6-1.0); POTASSIUM 4.4 mmol/L (3.5-5.1); TOTAL BILIRUBIN 0.3 mg/dL (0.2-1.0); TOTAL PROTEIN 5.1 g/dL (6.4-8.2)
[2021-06-12 13:03] LABS: HEMATOCRIT 29.6 % (37.0-47.0); HEMOGLOBIN 8.7 gm/dL (12.0-15.0); MCH 27.1 pg (26.0-34.0); MCHC 29.4 g/dL (28.0-37.0); MCV 92.4 fL (80.0-100.0); RDW 20.7 % (10.5-14.5); WBC 24.1 thou/uL (4.0-11.0)
[2021-06-12 13:10] LABS: CALCIUM 8.1 mg/dL (8.5-10.1); CREATININE 2.1 mg/dL (0.6-1.0); PLATELET COUNT 233 thou/uL (150-400)
[2021-06-12 13:20] LABS: MAGNESIUM 2.4 mg/dL (1.8-2.4); TOTAL BILIRUBIN 0.3 mg/dL (0.2-1.0); TOTAL PROTEIN 5.6 g/dL (6.4-8.2)
[2021-06-12 13:20] LABS: BE(vivo) -10.6 mmol/L (-2 to +3); HCO3 18.7 mmol/L (22.0-26.0); PCO2 61.6 mmHg (35.0-45.0); PO2 148.3 mmHg (80.0-100.0)
--- NOTE | 2021-06-12 13:47 | NUR ---
Assumed pt care at 7am.Pt in bed very anxious and can get comfortable in bed. Assessment completed.vss but low bp noted. Dr Powell rounded on pt and manual bp taken at 0915 as 98/49. O2 sat on 4lnc was 92%.Am meds given but pt refused breakfast. Rn encouraged pt to take pudding since oral meds was given. Around 1030am,pt called out c/o soa. O2 increased to 5literand Dr Powell notified.Repositioned pt for comfort and pericare and bed change done with 2 person assist.Around 1150,pt called out again c/o soa. O2 sat checked was 82% per enterprise project manager report.When rn came to pt room,she was unresposive. sternal rub given, no reponse. Code blue activated. Pt transfered to icu at 1215.Family called but no response.Dr Powell notified. Dr Smiley and Frances present with code team.
[2021-06-12 13:50] LABS: ABSOLUTE NEUTROPHILS 22.2 thou/uL (1.4-8.2); NUCLEATED RBCS 1 /100WBC
[2021-06-12 13:51] LABS: ANISOCYTOSIS 1+; HYPOCHROMASIA SLIGHT; MACROCYTES FEW; MICROCYTES FEW
--- NOTE | 2021-06-12 16:47 | NUR ---
RTLIJ PLACED FOR POST CODE STATUS IN ICU
--- NOTE | 2021-06-12 19:25 | NUR ---
ASSUMED CARE @ 1430 FROM [facility]. PT INTUBATED. FAMILY UPDATED ON PT'S PLAN OF CARE. PT A NO CODE. @ 1820 PT REQUESTED TO EXTUBATED. DR. GOMES NOTIFIED. ORDERS GIVEN TO FOLLOW PT'S WISH. PT EXTUBATED @ [address] FOX NOTIFIED. ORDERS GIVEN BY DR. GOMES TO PUT PT ON 2L AND USE BIPAP NEEDED TO MAINTAIN SATURATION ABOVE 89%. ON COMING NURSE AND RT AWARE.
[2021-06-13] VITALS (73 sets, daily range): BP systolic 63–159; BP diastolic 34–135
[2021-06-13 07:08] LABS: HEMATOCRIT 28.3 % (37.0-47.0); HEMOGLOBIN 8.5 gm/dL (12.0-15.0); MCH 27.3 pg (26.0-34.0); MCV 90.9 fL (80.0-100.0); PLATELET COUNT 176 thou/uL (150-400); RBC 3.12 mil/uL (4.20-5.00); RDW 20.1 % (10.5-14.5); WBC 17.5 thou/uL (4.0-11.0)
--- NOTE | 2021-06-13 07:21 | NUR ---
RECEIVED OT RE-EVALUATION ORDERS WHILE PATIENT WAS ON CCU. PATIENT CODED AND WAS TRANSFERRED TO ICU. PLACED PATIENT ON HOLD AND WILL NEED NEW ORDERS ONCE ABLE TO PARTICIPATE.
--- NOTE | 2021-06-13 07:24 | NUR ---
Pt. on BIPAP at 80% FIO2 at shift change. She is very anxious and keeps taking off BIPAP stating she just wants to .She is oriented to person only. Mom Roberta called to update her on pt.condition and what pt. stated. Initially mom said just to keep her comfortable then once I explained to her what that means to make sure she understands she stated she will decide today.For now she wants current treatment to continue. HIV NURSE notified about mom's decision. Precedex titrated to keep pt. calm and she is on a max dose to achieve that.Titrated slowly but did not help. Low BP , levophed titrated as well. RT adjusted BIPAP settings to keep O2 sat >90% and she is on 100% FIO2. Reposition for comfort. Right flank drain and right LQ drain flushed with 10 cc NS. Low urine output , 50 cc this shift. HIV NURSE notified with no new order.
[2021-06-13 07:26] LABS: CALCIUM 7.8 mg/dL (8.5-10.1); CREATININE 2.4 mg/dL (0.6-1.0); POTASSIUM 4.7 mmol/L (3.5-5.1); TOTAL BILIRUBIN 0.4 mg/dL (0.2-1.0); TOTAL PROTEIN 5.5 g/dL (6.4-8.2)
--- NOTE | 2021-06-13 08:05 | NUR ---
Pt TRANSFERRED TO ICU. WILL PLACE ON HOLD AND AWAIT NEW ORDERS
[2021-06-13 08:52] LABS: ABSOLUTE NEUTROPHILS 16.8 thou/uL (1.4-8.2); ANISOCYTOSIS 1+; PLATELET ESTIMATE NORMAL
--- NOTE | 2021-06-13 09:02 | EKG ---
[address] [address] ELECTROCARDIOGRAM REPORT Name: TYRLEL MEJIA Room #: 241- ADM IN M.R.#: [id number] Admission: 05/30/21 Attend Phys: Familia Powell MD Discharge: Date of : 58 Report #: [id number] [facility] Test Date: 2021-06-12 Test Time: 12:01:24 Pat Name: TYRELL JOHNMOND Department: Room: 241 Gender: F Cement Patcher: GIL : 1960 Requested By: Familia Powell Order Number: [id number] MD: Sanford Quinteros Measurements Intervals [place] Rate: 110 P: 69 MD: 170 QRS: 19 QRSD: 85 T: 76 QT: 299 QTc: 405 Interpretive Statements Sinus tachycardia Nonspecific ST segment abnormality Compared to ECG 05/30/2021 12:56:14 Ventricular premature complex(es) no longer present Electronically Signed On 06-13-2021 9:01:52 PARK AIDE by Sanford Quinteros [email or web address] <ELECTRONICALLY SIGNED> By: Sanford Quinteros MD, [facility] 06/13/21 0901 120 00 Sanford Quinteros MD, [facility] /EPI
--- NOTE | 2021-06-13 10:08 | NUR ---
Spoke with Dr. Powell regarding plan of care. MD ordered to stop precedex, which was stopped with her at bedside. MD informed of levophed requirements, low urine output, and bipap settings. Fluid bolus ordered and given + IVF started. Spoke with patients son and mother. Called consult to pallitative.
--- NOTE | 2021-06-13 12:07 | NUR ---
Spoke with patients mother, son, and sister informed them that patient is not wanting to wear bipap and that oxygenation saturation decreases immediately when patient takes off mask.
--- NOTE | 2021-06-13 15:18 | NUR ---
Patient took off bipap with family present in the room. Family decided to proceed with making patient comfortable.
--- NOTE | 2021-06-13 16:02 | NUR ---
Patient passed at 1530 two RN to verify, this RN and Prasanth REN. Family notified immediately. Mother Roberta Da Silva at bedside along with Sister janny. Artillery Officer informed. Family took patients belongings to include purse, clothes, and pillow. All questions and concerns were addressed
--- NOTE | 2021-06-13 16:45 | NUR ---
PT'S CARE WAS DISCUSSED DURING ICU ROUNDS THIS DAY. PT IS ON BIPAP AT 100%. PT'S MOTHER, SISTER ARE INVOLVED IN HER CARE. PALLIATIVE CARE ELEMENTARY SCHOOL READING TEACHER CONSULTED AND SHE SPOKE WITH PT'S MOTHER AT BEDSIDE. PT'S MOTHER INDICATED THAT SHE WANTED PT TRANSITIONED TO CONFORT CARE. PT MADE CONFORT CARE THIS AFTERNOON FAMILY AT BEDSIDE. CM FOLLOWING REGARDING NEEDS.
== END 2021-06-13 15:30 | DRG 871 ==
LOC: ER 12:52 → 2N 18:22 → EROBS 18:22 → 2N 21:21 → 4W 06-11 18:06 → ICU 06-12 12:30
PROVIDERS: Emergency Medicine; Internal Medicine; Nurse Practitioner; Nurse Practitioner Family; Physician Assistant; Specialist; Student in an Organized Health Care Education/Training Program; ADMIT Hospitalist; ATTEND Hospitalist
DX: A41.9 Sepsis, unspecified organism (principal); L89.153 Pressure ulcer of sacral region, stage 3; K65.1 Peritoneal abscess; E43 Unspecified severe protein-calorie malnutrition; J96.22 Acute and chronic respiratory failure with hypercapnia; I50.31 Acute diastolic (congestive) heart failure; N39.0 Urinary tract infection, site not specified; N17.9 Acute kidney failure, unspecified; G93.40 Encephalopathy, unspecified; L03.90 Cellulitis, unspecified; K56.7 Ileus, unspecified; Z68.28 Body mass index [BMI] 28.0-28.9, adult; Z88.8 Allergy status to other drugs, medicaments and biological substances; Z20.822 Contact with and (suspected) exposure to COVID-19; Z79.899 Other long term (current) drug therapy; Z89.512 Acquired absence of left leg below knee; Z87.440 Personal history of urinary (tract) infections; Z66 Do not resuscitate; I11.0 Hypertensive heart disease with heart failure; D63.8 Anemia in other chronic diseases classified elsewhere; E87.5 Hyperkalemia; E83.41 Hypermagnesemia
CPT/HCPCS: 10047; 10078; 10081; 10194; 27000